=== PATIENT | female | born 1950 | race African-American/Black ===

== ENCOUNTER 2016-12-04 07:54 | Observation (INO) | payer BC, MEDICARE ==
[~2016-12-04] VITALS: Ht 157.5 cm; Wt 111.0 kg
[2016-12-04] VITALS (14 sets, daily range): BP systolic 139–171; BP diastolic 77–97; PULSE 60–85; RESP 15–20; TEMP 96.9–98.7; O2SAT 96–99
[~2016-12-04 07:54] MED LIST: CIPR750T10 PO; LORTA5 PO; METR-1 PO
[2016-12-04] MEDS ORDERED: SODIUM CHLORIDE 0.9% FLUSH 10 ML FLUSH IVF PRN (08:15)
[2016-12-04 08:22] LABS: AUTOMATED NEUTROPHIL # 6.6 TH/MM3 (1.8-7.7); BASOPHIL % 0.5 % (0.0-2.0); EOSINOPHIL # 0.2 TH/MM3 (0-0.4); EOSINOPHIL % 1.9 % (0.0-4.0); HEMATOCRIT 39.7 % (35.0-46.0); LYMPHOCYTE # 2.1 TH/MM3 (1.0-4.8); MEAN CELL VOLUME 90.9 FL (80.0-100.0); MEAN CORPUSCULAR HEMOGLOBIN 30.1 PG (27.0-34.0); MEAN CORPUSCULAR HGB CONC 33.2 % (32.0-36.0); MONO % 7.4 % (0.0-8.0); NEUT % 68.2 % (16.0-70.0); PLATELET COUNT 245 TH/MM3 (150-450); RED BLOOD COUNT 4.36 MIL/MM3 (4.00-5.30); RED CELL DISTRIBUTION WIDTH 12.9 % (11.6-17.2); WHITE BLOOD COUNT 9.6 TH/MM3 (4.0-11.0)
[2016-12-04 08:25] LABS: HEMO FLAGS DIFF FINAL
[2016-12-04 08:30] LABS: CHLORIDE 105 MEQ/L (98-107); POTASSIUM 3.8 MEQ/L (3.5-5.1); SODIUM (NA) 140 MEQ/L (136-145)
--- NOTE | 2016-12-04 08:32 | PD ---
HPI Chief Complaint: Chest Pain Time Seen by Provider: 08:06 Travel History International Travel<30 days: No Contact w/Intl Traveler<30days: No Traveled to known affect area: No History of Present Illness HPI 56-year-old female with history of gastroesophageal reflux, presents to the ER today because she states that she is having substernal chest discomfort that she describes as heaviness starting this morning, feels like she can't take a good deep breath. She does state that she has some right sided headaches but no numbness or weakness or difficulty walking or talking. She denies any coughing, fevers, or any other symptoms. This discomfort is currently rated a 7 out 10. She denies any previous history. However, she did have an evaluation of her heart about 7 years ago and states that they told her was negative. Modifying Factors: None Associated Signs & Symptoms: Chest discomfort Risk Factors: None PFSH Past Medical History Autoimmune Disease: No Anxiety: Yes Depression: No Heart Rhythm Problems: No Cancer: No Cardiac Catheterization: No Cardiovascular Problems: No High Cholesterol: No Chemotherapy: No Chest Pain: No Congestive Heart Failure: No Cerebrovascular Accident: No Diabetes: No Diminished Hearing: No Diverticulitis: Yes Endocrine: No GERD: Yes Genitourinary: No Immune Disorder: No Musculoskeletal: No Neurologic: No Psychiatric: No Reproductive: No Respiratory: No Migraines: No Radiation Therapy: No Seizures: No Sickle Cell Disease: No Thyroid Disease: No ?: Not LMP: EXTRA HAND Menopausal: Yes : 3 Para: 2 : 1 Past Surgical History AICD: Yes Arteriovenous Shunt: No Section: Yes (x1) Coronary Artery Bypass Graft: No Gynecologic Surgery: Yes () Hysterectomy: No Insulin Pump: No Joint Replacement: No Pacemaker: No Other Surgery: Yes Social History Alcohol Use: Yes (occas beer) Tobacco Use: No Substance Use: No (hx of using "pot") Allergies-Medications (Allergen,Severity, Reaction): Coded Allergies: Penicillin (Verified Allergy, Severe, HIVES, 12/04/16) Aspirin (Verified Adverse Reaction, Severe, ABD PAIN, 12/04/16) Reported Meds & Prescriptions Reported Meds & Active Scripts Active No Active Prescriptions or Reported Medications Review of Systems Except as stated in HPI: all other systems reviewed are Neg Physical Exam Narrative GENERAL: Well-developed -[place] elderly female patient currently in mild distress. Awake and oriented 3. Mildly anxious. SKIN: Focused skin assessment warm/dry. HEAD: Atraumatic. Normocephalic. EYES: Pupils equal and round. No scleral icterus. No injection or drainage. ENT: No nasal bleeding or discharge. Mucous membranes pink and moist. EARS: Bilateral pinnae and external canals appear within normal limits. Bilateral tympanic membranes without erythema, dullness or perforation. NECK: Trachea midline. No JVD. CARDIOVASCULAR: Regular rate and rhythm. No murmur appreciated. Pulses are present and equal bilaterally. RESPIRATORY: No accessory muscle use. Clear to auscultation. Breath sounds equal bilaterally. No wheezing, crackles, or rhonchi. GASTROINTESTINAL: Abdomen soft, non-tender, nondistended. Hepatic and splenic margins not palpable. MUSCULOSKELETAL: No obvious deformities. No clubbing. No cyanosis. No edema. EXTREMITIES: No clubbing, cyanosis, or edema. No joint tenderness, effusion, or edema noted. No calf tenderness. Bilateral Homans sign negative. NEUROLOGICAL: Awake and alert. No obvious cranial nerve deficits. Motor grossly within normal limits. Normal speech. PSYCHIATRIC: Appropriate mood and affect; insight and judgment normal. Data Data Last Documented VS Vital Signs Date Time Temp Pulse Resp B/P Pulse Ox O2 Delivery O2 Flow Rate FiO2 12/04/16 09:22 81 15 171/77 98 Room Air 12/04/16 08:13 98.4 Orders Electrocardiogram (12/04/16 08:06) Ckmb (Isoenzyme) Profile (12/04/16 08:06) Complete Blood Count With Diff (12/04/16 08:06) Comprehensive Metabolic Panel (12/04/16 08:06) D-Dimer (12/04/16 08:06) Magnesium (Mg) (12/04/16 08:06) Prothrombin Time / Inr (Pt) (12/04/16 08:06) Act Partial Throm Time (Ptt) (12/04/16 08:06) Troponin I (12/04/16 08:06) Lipase (12/04/16 08:06) Chest, Single Ap (12/04/16 08:06) Ecg Monitoring (12/04/16 08:06) Bilateral Bp Monitoring (12/04/16 08:06) Iv Access Insert/Monitor (12/04/16 08:06) Oximetry (12/04/16 08:06) Oxygen Administration (12/04/16 08:06) Sodium Chloride 0.9% Flush (Ns Flush) (12/04/16 08:15) Labs Laboratory Tests Test 12/04/16 08:10 White Blood Count 9.6 TH/MM3 Red Blood Count 4.36 MIL/MM3 Hemoglobin 13.1 GM/DL Hematocrit 39.7 % Mean Corpuscular Volume 90.9 FL Mean Corpuscular Hemoglobin 30.1 PG Mean Corpuscular Hemoglobin 33.2 % Concent Red Cell Distribution Width 12.9 % Platelet Count 245 TH/MM3 Mean Platelet Volume 8.6 FL Neutrophils (%) (Auto) 68.2 % Lymphocytes (%) (Auto) 22.0 % Monocytes (%) (Auto) 7.4 % Eosinophils (%) (Auto) 1.9 % Basophils (%) (Auto) 0.5 % Neutrophils # (Auto) 6.6 TH/MM3 Lymphocytes # (Auto) 2.1 TH/MM3 Monocytes # (Auto) 0.7 TH/MM3 Eosinophils # (Auto) 0.2 TH/MM3 Basophils # (Auto) 0.0 TH/MM3 CBC Comment DIFF FINAL Differential Comment Prothrombin Time 10.5 SEC Prothromb Time International 1.0 RATIO Ratio Activated Partial 29.2 SEC Thromboplast Time D-Dimer Quantitative (PE/DVT) 0.23 MG/L FEU Sodium Level 140 MEQ/L Potassium Level 3.8 MEQ/L Chloride Level 105 MEQ/L Carbon Dioxide Level 27.6 MEQ/L Anion Gap 7 MEQ/L Blood Urea Nitrogen 14 MG/DL Creatinine 0.82 MG/DL Estimat Glomerular Filtration 85 ML/MIN Rate Random Glucose 122 MG/DL Calcium Level 9.0 MG/DL Magnesium Level 1.9 MG/DL Total Bilirubin 0.4 MG/DL Aspartate Amino Transf 13 U/L (AST/SGOT) Alanine Aminotransferase 22 U/L (ALT/SGPT) Alkaline Phosphatase 89 U/L Total Creatine Kinase 94 U/L Troponin I LESS THAN 0.02 NG/ML Total Protein 7.9 GM/DL Albumin 3.3 GM/DL Lipase 78 U/L MDM Medical Decision Making Medical Screen Exam Complete: Yes Emergency Medical Condition: Yes Medical Record Reviewed: Yes Interpretation(s) EKG shows NSR, no ST elevation or depression, and no arrhythmias. No significant T-wave inversions. Laboratory Tests Test 12/04/16 08:10 Estimat Glomerular Filtration 85 ML/MIN (>89) Rate Random Glucose 122 MG/DL (74-106) Aspartate Amino Transf 13 U/L (15-37) (AST/SGOT) Troponin I LESS THAN 0.02 NG/ML (0.02-0.05) Albumin 3.3 GM/DL (3.4-5.0) Differential Diagnosis Chest painsACS versus anxiety attack versus pneumonia versus other acute pulmonary processes Narrative Course EKG, lab work, chest x-ray did not show any signs of acute processes. She will need further provocative the testing and I have offered to admit her to chest pain center for further evaluation. At this point, she states that she would prefer to follow-up as an outpatient when she gets her insurance card. I have talked her about the fact that her blood pressures were somewhat elevated. This is just a single blood pressure reading, patient should also follow-up with primary care physician regarding further evaluation of blood pressures. Return for any worsening in symptoms or if she changes her mind about getting evaluated. The plan and the risks were discussed with the patient and she states understanding. Diagnosis Primary Impression: Chest pain Additional Impression: High blood pressure Scripts No Active Prescriptions or Reported Meds Disposition: 01 DISCHARGE HOME Condition: Stable Annette Schmidt MD Dec 04, 2016 08:32
[2016-12-04 08:34] LABS: ANION GAP 7 MEQ/L (5-15); BICARBONATE 27.6 MEQ/L (21.0-32.0); BLOOD UREA NITROGEN 14 MG/DL (7-18); MAGNESIUM 1.9 MG/DL (1.5-2.5)
[2016-12-04 08:37] LABS: ALT (GPT) 22 U/L (10-53); AST (GOT) 13 U/L (15-37); GLOMERULAR FILTRATION RATE 85 ML/MIN (>89)
[2016-12-04 08:38] LABS: TOTAL BILIRUBIN ADULT 0.4 MG/DL (0.2-1.0)
[2016-12-04 08:39] LABS: ALKALINE PHOSPHATASE 89 U/L (45-117)
[2016-12-04 08:40] LABS: APTT (PATIENT) 29.2 SEC (24.3-30.1); PROTHROMBIN TIME - PATIENT 10.5 SEC (9.8-11.6)
[2016-12-04 08:44] LABS: CREATINE KINASE 94 U/L (26-192)
--- NOTE | 2016-12-04 09:26 | RADHPO ---
EXAM DATE/TIME: 12/04/2016 08:15 [facility] COMPARISON: CHEST SINGLE AP, March 13, 2013, 13:36. INDICATIONS : Chest pain this a.m. MEDICAL HISTORY : None. SURGICAL HISTORY : None. ENCOUNTER: Initial ACUITY: 1 day PAIN SCORE: 8/10 LOCATION: Bilateral chest FINDINGS: The lungs are underaerated but clear. Heart and pulmonary vascularity are normal. Portion of bony s keleton visualized is unremarkable. CONCLUSION: Underaerated. Otherwise, negative. Sher Alarcon MD FACR on December 04, 2016 at 9:16 Board Certified Radiologist. This report was verified electronically.
[2016-12-04] MEDS ORDERED: MORPHINE SULFATE 4 MG/ML INJ IV PRN (10:30)
[2016-12-04] MEDS ORDERED: NITROGLYCERIN 0.4 MG SL 25 TABS/BTL SL PRN (10:30)
[2016-12-04] MEDS ORDERED: ONDANSETRON HCL 4 MG/2 ML VIAL IV PRN (10:30)
[2016-12-04] MEDS ORDERED: SODIUM CHLORIDE 0.9% FLUSH 10 ML FLUSH IV FLUSH PRN (10:30)
[2016-12-04] MEDS ORDERED: ACETAMINOPHEN 500 MG CPLT PO PRN (10:30)
--- NOTE | 2016-12-04 10:44 | HHI.HP ---
[facility] Primary [facility] Physician No Primary Care Physician Admission Diagnosis chest pain Diagnoses: (1) Chest pain Diagnosis: Principal (2) Elevated blood pressure reading Diagnosis: Principal Chief Complaint: Chest discomfort Travel History International Travel<30 Days: No Contact w/Intl Traveler <30 Da: No Traveled to Known Affected Are: No History of Present Illness Written by Ceferino Clark, acting as scribe for Dr. Wolff on 12/04/16 at 10: 32. 66-year-old female with gastroesophageal reflux who presented to the emergency department because of chest discomfort. Patient states that approximately 5:30 this morning and she started developing severe left-sided chest pain along the left sternal border. She states that the pain is associated with pleuritic pain , difficulty in taking a deep breath. She denied any nausea, vomiting, diaphoresis, lightheadedness, dizziness. Patient indicates that the pain was initially 9/10 on a pain scale and after being in the emergency department is now down to 5/10 on a pain scale. Patient indicates that she is in normal state of health until last evening she went out at approximately 2 AM to do online gambling and she came home approximately 5 AM and she ate herself a peanut butter sandwich. She laid down to go to sleep and she woke up at 5:30 with the discomfort. The discomfort did not go away so she came to the emergency department for evaluation. Patient was evaluated in emergency department recommended observation in the chest pain center. Patient has had previous chest pain Center admission in 2013 in which she was ruled out for acute coronary event at that time. She had a nuclear stress test done then also which was negative. Review of Systems Constitutional: DENIES: Diaphoretic episodes, Fatigue, Fever, Weight gain, Weight loss, Chills, Dizziness, Change in appetite, Night Sweats Eyes: DENIES: Blurred vision, Diplopia, Eye inflammation, Eye pain, Vision loss , Double Vision Ears, nose, mouth, throat: DENIES: Hearing loss, Nasal discharge, Throat pain, Ear Pain, Running Nose, Sinus Pain, Odynophagia Respiratory: COMPLAINS OF: Shortness of breath, DENIES: Apneas, Cough, Snoring , Wheezing, Hemoptysis, Sputum production Cardiovascular: COMPLAINS OF: Chest pain, DENIES: Palpitations, Syncope, Dyspnea on Exertion, Lower Extremity Edema, Orthopnea Gastrointestinal: DENIES: Abdominal pain, Black stools, Bloody stools, Constipation, Diarrhea, Nausea, Vomiting, Difficulty Swallowing, Anorexia Neurologic: COMPLAINS OF: Headache, DENIES: Abnormal gait, Localized weakness , Paresthesias, Seizures, Speech Problems, Tremor, Poor Balance Past Family Social History Past Medical History Gastroesophageal reflux History diverticulitis Past Surgical History Reported Medications Reported Meds & Active Scripts Active No Active Prescriptions or Reported Medications Allergies: Coded Allergies: Penicillin (Verified Allergy, Severe, HIVES, 12/04/16) Aspirin (Verified Adverse Reaction, Severe, ABD PAIN, 12/04/16) Family History Reviewed is significant for brother and daughter with diabetes. There is no indication of any heart disease, cancer, seizures, stroke Social History Patient denies any tobacco, alcohol or illicit drugs Physical Exam Vital Signs Vital Signs Date Time Temp Pulse Resp B/P Pulse Ox O2 Delivery O2 Flow Rate FiO2 12/04/16 09:22 81 15 171/77 98 Room Air 12/04/16 08:19 153/92 149/85 12/04/16 08:19 98 12/04/16 08:19 98 Room Air 12/04/16 08:19 85 98 Room Air 12/04/16 08:13 98.4 85 17 153/92 98 Physical Exam GENERAL: Well-developed, well-nourished, in no acute distress. alert and orientated HEENT: Head is normocephalic without any lesions or masses noted. Facial features are symmetric. Eyes: Pupils equal round reactive to light. Extraocular muscles are intact. Conjunctivae were clear. Oropharyngeal: Pharynx without any erythema edema. Tongue is midline without deviation. Buccal mucosa is moist without any masses or lesions NECK: Supple without any masses. Trachea midline no deviation. No JVD, no bruits are appreciated CARDIAC: Regular rhythm, regular rate. S1/S2 are heard. No murmurs gallops or rubs. Reproducible point tenderness noted left sternal border in the third fourth intercostal space LUNGS: Clear to auscultation bilaterally. No wheeze, rhonchi or rales. No use of accessory muscles on inspiration or expiration. ABDOMEN: Soft, nontender. Nondistended. Bowel sounds heard in all 4 quadrants. No organomegaly or masses. Negative rebound, negative guarding EXTREMITIES: No edema, pulses are equal bilaterally. No cyanosis or clubbing NEUROLOGY: Mood and affect appear appropriate. Cranial nerves II through XII grossly intact. Muscle strength 5/5 in upper and lower extremities bilaterally. Deep tendon reflexes are 2+ in upper and lower extremities bilaterally. Laboratory Laboratory Tests Test 12/04/16 08:10 White Blood Count 9.6 Red Blood Count 4.36 Hemoglobin 13.1 Hematocrit 39.7 Mean Corpuscular Volume 90.9 Mean Corpuscular Hemoglobin 30.1 Mean Corpuscular Hemoglobin 33.2 Concent Red Cell Distribution Width 12.9 Platelet Count 245 Mean Platelet Volume 8.6 Neutrophils (%) (Auto) 68.2 Lymphocytes (%) (Auto) 22.0 Monocytes (%) (Auto) 7.4 Eosinophils (%) (Auto) 1.9 Basophils (%) (Auto) 0.5 Neutrophils # (Auto) 6.6 Lymphocytes # (Auto) 2.1 Monocytes # (Auto) 0.7 Eosinophils # (Auto) 0.2 Basophils # (Auto) 0.0 CBC Comment DIFF FINAL Differential Comment Prothrombin Time 10.5 Prothromb Time International 1.0 Ratio Activated Partial 29.2 Thromboplast Time D-Dimer Quantitative (PE/DVT) 0.23 Sodium Level 140 Potassium Level 3.8 Chloride Level 105 Carbon Dioxide Level 27.6 Anion Gap 7 Blood Urea Nitrogen 14 Creatinine 0.82 Estimat Glomerular Filtration 85 Rate Random Glucose 122 Calcium Level 9.0 Magnesium Level 1.9 Total Bilirubin 0.4 Aspartate Amino Transf 13 (AST/SGOT) Alanine Aminotransferase 22 (ALT/SGPT) Alkaline Phosphatase 89 Total Creatine Kinase 94 Troponin I LESS THAN 0.02 Total Protein 7.9 Albumin 3.3 Lipase 78 Result Diagram: 12/04/16 0810 12/04/16 0810 Assessment and Plan Assessment and Plan //Chest pain, atypical -Patient with risk factor only to indicate age -Ruled out acute coronary syndrome with serial cardiac enzymes and serial EKGs -Nuclear stress test showed small stress-induced ischemia in the lateral wall -Start aspirin 325 mg daily -Continue pain control with [place]/morphine -Contacted cardiology, notify them of the abnormal stress test. They indicated that they will be by and see the patient and make further recommendations -Start Coreg 3.125 mg twice daily -Start Lipitor 10 mg daily -Start heparin IV protocol -Unable to use nitroglycerin at this time due to bradycardia -Obtain lipid panel //Elevated blood pressure, could be secondary to lack of sleep, stress -Patient does not have history of hypertension -Patient will be started on Coreg -Clonidine as needed //DVT prevention -Sequential compression devices This note was transcribed by scribe [Ceferino Clark]. I, Dr. Hasmukh Wolff personally performed the history, physical exam, and medical decision making; and confirmed the accuracy of the information in the transcribed note. Authenticated by Dr. Hasmukh Wolff on 12/06/16 at 00:10. Problem Qualifiers (1) Chest pain: Ceferino Clark Dec 04, 2016 10:44 Hasmukh Wolff MD Dec 06, 2016 00:10 Ceferino Clark Dec 04, 2016 10:44
[2016-12-04] MEDS ORDERED: cloNIDine HCL 0.1 MG TAB PO PRN (10:45)
[2016-12-04 11:57] LABS: CREATINE KINASE 83 U/L (26-192)
[2016-12-04] MEDS ORDERED: REGADENOSON INJ 0.4 MG/5 ML SYR IV ONE (12:42)
--- NOTE | 2016-12-04 12:59 | EKG ---
Date Performed: 12/04/2016 Time Performed: 07:58:34 PTAGE: 66 years EKG: Sinus rhythm . rSr'(V1) - probable normal variant Normal ECG PREVIOUS TRACING : 03/13/2013 17.55 DOCTOR: Anastacio Robins Interpretating Date/Time 12/04/2016 12:57:41
--- NOTE | 2016-12-04 13:53 | RADHPO ---
EXAM DATE/TIME: 12/04/2016 12:39 [facility] COMPARISON: MYOCARDIAL PERF TREADMILL SPECT, GATED W/EF, March 14, 2013, 9:28. INDICATIONS : Left sided chest pain. Angina. DOSE: 35 mCi Tc99m Myoview at stress. 11 mCi Tc99m Myoview at rest. 0.4 mg Lexiscan STRESS SYMPTOMS: Throat pressure and headache. EJECTION FRACTION: > 70% MEDICAL HISTORY : Hypertension. SURGICAL HISTORY : section. Internal defibrillator. ENCOUNTER: Initial ACUITY: 1 day PAIN SCALE: 9/10 LOCATION: Left chest TECHNIQUE: The patient underwent pharmacologic stress with infusion of prescribed dose. Continuous ECG tracing was monitored during stress. Gated SPECT imaging was performed after stress and conventional SPECT i maging was performed at rest. The examination was performed on a SPECT/CT scanner, both attenuation and non-corrected datasets were reviewed. FINDINGS: DISTRIBUTION: The maximum perfused segment at stress is in the anterior wall. PERFUSION STUDY: Small focus of mild reversible perfusion deficit seen of the lateral wall. GATED STUDY: There is intact wall motion and thickening without hypokinetic or dyskinetic segments. CONCLUSION: Small focus of mild stress-induced ischemia of the lateral wall. RISK CATEGORY: Intermediate Avi Altamirano MD on December 04, 2016 at 13:49 Board Certified Radiologist. This report was verified electronically.
--- NOTE | 2016-12-04 14:26 | TR ---
Date Performed: 12/04/2016 Time Performed: 13:04:56 DOCTOR: Anastacio Robins DRUG LIST: CLINICAL HISTORY: CHEST PAIN REASON FOR TEST: REASON FOR ENDING: OBSERVATION: CONCLUSION: Lexiscan stress test was performed under standard four minute protocol. Radionuclide was injected one minute prior to ending the test. The patient was asymptomatic, systolic blood press ure became slightly elevated. No electrocardiographic abnormalities were present to suggest ischemia. Recovery was quick and uneventful, systolic blood pressure returned to normal. Nuclear imaging and i nterpretation are pending. COMMENTS:
[2016-12-04] MEDS ORDERED: ATORVASTATIN 10 MG TAB PO SCH (14:45)
[2016-12-04] MEDS ORDERED: CARVEDILOL 3.125 MG TAB PO SCH (14:45)
[2016-12-04] MEDS ORDERED: HEPARIN SODIUM - IV 10,000 UNITS/10 ML VIAL IV ONE (15:15)
[2016-12-04 15:53] LABS: CREATINE KINASE 90 U/L (26-192)
[2016-12-04] MEDS ORDERED: ASPIRIN EC 325 MG TABEC PO SCH (16:00)
[2016-12-04] MEDS: ACETAMINOPHEN/HYDROcodone 325 MG/7.5 MG TAB PO PRN ×2 (16:32→21:42)
[2016-12-04] MEDS: HEPARIN-D5W INJ 250 ML IV SCH (17:06)
[2016-12-04] MEDS: NITROGLYCERIN 2% OINT 1 GM PACKET TOPICAL SCH (17:56)
--- NOTE | 2016-12-04 19:42 | MB ---
cc: TAMRA HENRIQUEZ PEDRO GOLDSMITH, ALAN S. MD DATE OF CONSULTATION 12/04/16 The patient is a pleasant 66-year-old woman I am seeing for unstable angina. I have reviewed hospital records and spoken to the patient. The patient has had rare atypical chest discomfort in the past. SPECT nuclear done in 2012 was normal. The patient had been up most of the night at an [employer] place. She came home approximately 5-5:30. She had a peanut butter and jelly sandwich. At about 6:30, she developed a severe substernal tightness. There was no radiation or associated symptoms, but maybe she was a little short of breath with this. It was not pleuritic or positional. It went away in about 20 minutes but came back a little bit later lasting for another 20-30 minutes. She is pain free now. She has no other cardiopulmonary symptoms or history. She denies hypertension, diabetes or hyperlipidemia. PAST MEDICAL HISTORY 1. Diverticulitis 2. Esophageal reflux 3. Caesarean section ALLERGIES PENICILLIN - RESULTS IN HIVES HIGH DOSE ASPIRIN - RESULTS IN STOMACH DISTRESS SOCIAL HISTORY She is and does not smoke and rarely drinks. FAMILY HISTORY Unremarkable for premature coronary disease. MEDICATIONS She is not on any medication before coming in. Her LDL in the past in 2008 was 133. REVIEW OF SYSTEMS Remarkable for her gaining weight and having occasional joint discomfort. She has been active and has gone back to the gym recently. PHYSICAL EXAMINATION GENERAL: She is morbidly overweight but resting comfortably. VITAL SIGNS: Afebrile. Vital signs stable, although she has been mildly hypertensive. HEENT: There are no xanthelasma and oral pharyngeal mucosa normal. CHEST: There are no obvious chest deformities. Chest is clear. JVD normal. CARDIAC: S1-S2 no murmurs or gallops. ABDOMEN: Benign. EXTREMITIES: No cyanosis, clubbing or edema. PULSES: Carotids without bruits. Radials 1+. Femorals deep 1+ without bruits. Pedals 1+. She is not ambulated. CARDIOLOGY STUDIES EKG showed sinus rhythm with RSR prime in V1 and is otherwise probably normal. LABORATORY DATA Troponins are negative. Potassium 4.2, creatinine 0.54, PT/PTT and D-dimer normal. She is being started on heparin. CBC normal. ASSESSMENT 1. Chest discomfort - the patient had an abnormal SPECT nuclear which showed preserved ventricular function but with mild stress-induced ischemia at the lateral wall. This is new compared to prior one, although she has put on weight. 2. Obesity 3. Hypertension 4. Hyperlipidemia. RECOMMENDATIONS 1. Continue heparin. 2. Statins and beta blockers and nitrates. 3. Catheterization with possible intervention. The risks/benefits/alternatives were explained and informed consent obtained. I will consult my partner, Dr. Mcdowell, for this. 4. Low cholesterol/salt diet with weight loss. 5. Transfer to CICU at the [facility]. All questions were answered. MD COLT Garrido/ /5:00 PM /7:30 PM
[2016-12-04] MEDS: CARVEDILOL 6.25 MG TAB PO SCH (21:00)
[2016-12-04] MEDS ORDERED: HEPARIN SODIUM - IV 10,000 UNITS/10 ML VIAL IV PRN ×2 (21:15)
[2016-12-04] MEDS: SODIUM CHLORIDE 0.9% FLUSH 10 ML FLUSH IV FLUSH SCH (21:46)
[2016-12-04 23:18] LABS: APTT (PATIENT) 47.8 SEC (24.3-30.1)
[2016-12-05] VITALS (27 sets, daily range): BP systolic 81–153; BP diastolic 46–80; PULSE 57–114; RESP 18–20; TEMP 98–98.9; O2SAT 97–99
[2016-12-05 05:46] LABS: HDL CHOLESTEROL 58.3 MG/DL (40.0-60.0)
[2016-12-05] MEDS: NITROGLYCERIN 2% OINT 1 GM PACKET TOPICAL SCH ×4 (06:00→17:43)
[2016-12-05 06:25] LABS: APTT (PATIENT) 46.4 SEC (24.3-30.1)
[2016-12-05] MEDS: SODIUM CHLORIDE 0.9% FLUSH 10 ML FLUSH IV FLUSH SCH ×2 (09:00→20:19)
--- NOTE | 2016-12-05 09:34 | PD.CARD.PN ---
Subjective Subjective Remarks The patient denies chest pain, shortness of breath, palpitations, GI symptoms or bleeding. Telemetry reveals sinus rhythm. Objective Medications Reviewed Vital Signs / I&O Vital Signs Date Time Temp Pulse Resp B/P Pulse Ox O2 Delivery O2 Flow Rate FiO2 12/05/16 07:30 98.4 72 20 153/80 99 12/05/16 06:00 58 12/05/16 05:00 57 12/05/16 04:30 98.0 58 20 125/73 98 12/05/16 04:00 60 12/05/16 03:00 62 12/05/16 02:00 62 12/05/16 01:00 60 12/05/16 00:00 66 12/05/16 00:00 98.4 58 18 110/60 97 81/46 12/04/16 23:00 62 12/04/16 22:00 60 12/04/16 21:00 68 12/04/16 20:40 68 12/04/16 20:00 98.3 68 20 160/86 98 12/04/16 18:11 72 12/04/16 17:32 20 12/04/16 16:48 98.7 75 18 163/97 99 12/04/16 13:44 20 12/04/16 12:18 96.9 67 15 149/84 99 12/04/16 11:36 96 21 12/04/16 11:00 82 12/04/16 10:15 68 15 139/84 98 I/O 12/04/16 12/04/16 12/04/16 12/05/16 12/05/16 12/05/16 07:00 15:00 23:00 07:00 15:00 23:00 Intake Total 600 ml 240 ml Balance 600 ml 240 ml Intake Oral 600 ml 240 ml # Voids 4 2 Physical Exam GENERAL: Overweight , well-nourished, well-developed patient in no apparent distress. SKIN: Warm and dry. NECK: JVD normal - less than or equal to 5 cm H20. CARDIOVASCULAR: Regular rate and rhythm without murmurs, gallops, or rubs. RESPIRATORY: Normal breath sounds - equal bilaterally. No accessory muscle use. No wheezes, rales or rubs. PERIPHERY: No cyanosis, or edema. Laboratory Laboratory Tests Test 12/04/16 12/04/16 12/04/16/11/17 10:50 14:57 22:45 05:05 Total Creatine Kinase 83 U/L 90 U/L Troponin I LESS THAN 0.02 LESS THAN 0.02 NG/ML NG/ML Activated Partial 47.8 SEC 46.4 SEC Thromboplast Time Triglycerides Level 98 MG/DL Cholesterol Level 195 MG/DL LDL Cholesterol 117 MG/DL HDL Cholesterol 58.3 MG/DL Cholesterol/HDL Ratio 3.34 RATIO Imaging Last 48 hours Impressions Chest X-Ray 12/04/16 0806 Signed Impressions: Service Date/Time: Sunday, December 04, 2016 08:15 - CONCLUSION: Underaerated. Otherwise, negative. Sher Alarcon MD FACR Myocardial Perfusion Scan Nuc Med 12/04/16 0000 Signed Impressions: Service Date/Time: Sunday, December 04, 2016 12:39 - CONCLUSION: Small focus of mild stress-induced ischemia of the lateral wall. RISK CATEGORY: Intermediate Avi Altamirano MD Assessment and Plan Assessment and Plan Problems: Unstable angina with mildly abnormal SPECT nuclear. Hypertension Hyperlipidemia Obesity Recommendations: Catheterization with possible intervention with Dr. Mcdowell tomorrow. Low-cholesterol/salt diet with weight loss. Continue aspirin, statins, beta blockers and nitrates along with heparin drip. The patient has been advised she clearly needs to establish and follow with a primary care provider. I will sign off and leave further management to Dr. Mcdowell from a cardiac standpoint. Eduardo Boyce MD Dec 05, 2016 09:34
[2016-12-05] MEDS: CARVEDILOL 6.25 MG TAB PO SCH ×2 (10:13→20:25)
[2016-12-05] MEDS: ASPIRIN EC 81 MG TABEC PO SCH (10:14)
[2016-12-05] MEDS: ATORVASTATIN 40 MG TAB PO SCH (10:15)
--- NOTE | 2016-12-05 12:16 | EKG ---
Date Performed: 12/04/2016 Time Performed: 10:53:02 PTAGE: 66 years EKG: Sinus bradycardia. rSr'(V1) - probable normal variant Borderline ECG PREVIOUS TRACING : 12/04/2016 07.58 DOCTOR: Anastacio Robins Interpretating Date/Time 12/05/2016 12:16:30
--- NOTE | 2016-12-05 12:19 | EKG ---
Date Performed: 12/04/2016 Time Performed: 15:01:24 PTAGE: 66 years EKG: Sinus rhythm . rSr'(V1) - probable normal variant Normal ECG PREVIOUS TRACING : 12/04/2016 10.53 DOCTOR: Anastacio Robins Interpretating Date/Time 12/05/2016 12:17:14
--- NOTE | 2016-12-05 13:35 | HHI.PR ---
Subjective Remarks Follow-up unstable angina 12/05/16-patient seen and examined, currently denies any chest pain or shortness of breath. Case discussed with cardiology, Dr. Boyce. Admits of noncompliance with medical care Objective Vitals Vital Signs Date Time Temp Pulse Resp B/P Pulse Ox O2 Delivery O2 Flow Rate FiO2 12/05/16 12:04 98.8 80 20 111/66 99 12/05/16 08:00 98.4 72 20 153/80 99 12/05/16 07:30 98.4 72 20 153/80 99 12/05/16 06:00 58 12/05/16 05:00 57 12/05/16 04:30 98.0 58 20 125/73 98 12/05/16 04:00 60 12/05/16 03:00 62 12/05/16 02:00 62 12/05/16 01:00 60 12/05/16 00:00 66 12/05/16 00:00 98.4 58 18 110/60 97 81/46 12/04/16 23:00 62 12/04/16 22:00 60 12/04/16 21:00 68 12/04/16 20:40 68 12/04/16 20:00 98.3 68 20 160/86 98 12/04/16 18:11 72 12/04/16 17:32 20 12/04/16 16:48 98.7 75 18 163/97 99 12/04/16 13:44 20 I/O 12/04/16 12/04/16 12/04/16 12/05/16 12/05/16 12/05/16 07:00 15:00 23:00 07:00 15:00 23:00 Intake Total 600 ml 240 ml Balance 600 ml 240 ml Intake Oral 600 ml 240 ml # Voids 4 2 Result Diagram: 12/04/16 0810 12/04/16 0810 Imaging Last Impressions Chest X-Ray 12/04/16 0806 Signed Impressions: Service Date/Time: Sunday, December 04, 2016 08:15 - CONCLUSION: Underaerated. Otherwise, negative. Sher Alarcon MD FACR Myocardial Perfusion Scan Nuc Med 12/04/16 0000 Signed Impressions: Service Date/Time: Sunday, December 04, 2016 12:39 - CONCLUSION: Small focus of mild stress-induced ischemia of the lateral wall. RISK CATEGORY: Intermediate Avi Altamirano MD Objective Remarks GENERAL: NAD SKIN: Warm and dry. HEAD: Normocephalic. EYES: No scleral icterus. No injection or drainage. NECK: Supple, trachea midline. No JVD or lymphadenopathy. CARDIOVASCULAR: Regular rate and rhythm without murmurs, gallops, or rubs. RESPIRATORY: Breath sounds equal bilaterally. No accessory muscle use. GASTROINTESTINAL: Abdomen soft, non-tender, nondistended. MUSCULOSKELETAL: No cyanosis, or edema. BACK: Nontender without obvious deformity. No CVA tenderness. A/P Problem List: (1) Unstable angina ICD Code: I20.0 Status: Acute (2) Chest pain ICD Code: R07.9 Status: Acute (3) Elevated blood pressure reading ICD Code: R03.0 Status: Acute (4) Benign hypertension ICD Code: I10 Status: Acute (5) Hyperlipidemia ICD Code: E78.5 Status: Acute (6) IFG (impaired fasting glucose) ICD Code: R73.01 Status: Acute Assessment and Plan 66-year-old female with Unstable angina Mildly abnormal SPECT for which legal billing specialist has been consulted pending left heart catheterization 12/06/16 Continue with heparin drip, beta sophie, Lipitor, aspirin, nitroglycerin paste, morphine when necessary. 2-D echo pending Hypertension Normotensive on Coreg Hyperlipidemia LDL of 117 Continue with Lipitor Impaired fasting glucose No known history of diabetes type 2, check hemoglobin A1c and treat accordingly DVT prophylaxis: Heparin Problem Qualifiers (1) Chest pain: Joe Yeh MD Dec 05, 2016 13:35
[2016-12-05] MEDS: HEPARIN-D5W INJ 250 ML IV SCH (16:31)
[2016-12-05] MEDS ORDERED: IOHEXOL 350 MG/ML 50 ML BTL (for Cath Lab) OTHER ONE (17:40)
[2016-12-05] MEDS ORDERED: HEPARIN-NS/PF INJ 500 ML ONE (17:50)
[2016-12-05] MEDS ORDERED: NITROGLYCERIN INJ 5 ML ONE (17:51)
[2016-12-05] MEDS ORDERED: MIDAZOLAM HCL 2 MG/2 ML VIAL ONE (17:51)
[2016-12-05] MEDS ORDERED: HEPARIN SODIUM - IV 10,000 UNITS/10 ML VIAL ONE (17:51)
[2016-12-05] MEDS ORDERED: VERAPAMIL HCL 5 MG/2 ML VIAL ONE (17:51)
--- NOTE | 2016-12-05 18:12 | MB ---
cc: DARNELL PATRICK DATE OF CONSULTATION 12/05/2016 Interventional cardiology consult. DATE OF 1950 REASON FOR CONSULTATION Chest pain, positive stress test. HISTORY OF PRESENT ILLNESS 66-year-old female with cardiac risk factors that include obesity, hypertension , hyperlipidemia and age that presented to the emergency department with severe substernal chest tightness with no radiation or associated symptoms. She subsequently went to the [facility] where she was admitted. She ruled out by cardiac markers and underwent a myocardial perfusion study that showed preserved LV systolic function with mild stress- induced ischemia of the lateral wall. Thus she was transferred to [facility] and she was consulted to interventional cardiology for LHC +/- PCI. REVIEW OF SYSTEMS Negative except for what is mentioned in HPI. PAST MEDICAL HISTORY 1. Diverticulitis. 2. Gastroesophageal reflux disease. 3. section. 4. Obesity. 5. Hypertension. 6. Hyperlipidemia. ALLERGIES PENICILLIN. SOCIAL HISTORY No smoking, no alcohol use or no illicit drug use. FAMILY HISTORY Noncontributory. MEDICATIONS Home medications, none. PHYSICAL EXAMINATION VITAL SIGNS: Temperature 98, pulse 65, respiratory rate 20, blood pressure 111/ 65. O2 sat 99% room air. GENERAL: She is awake, alert, oriented x3 in no acute distress. NECK: No JVD, no carotid bruits. HEART: Regular rate and rhythm. LUNGS: Clear to auscultation bilaterally. ABDOMEN: Obese. Positive bowel sounds, soft, nontender, nondistended. EXTREMITIES: No edema. No cyanosis. Pulses throughout. LABORATORY DATA CBC, hemoglobin 13, hematocrit 39, platelet count 245. INR 1.0. Chemistries, sodium 140, potassium 3.8, BUN 14, creatinine 0.82. Troponin less than 0.02 x3. Triglycerides 98, cholesterol 195, LDL 117. HDL 58. IMAGING Chest x-ray no acute cardiopulmonary process. Myocardial perfusion study shows small focus of mild stress induced ischemia in the lateral wall. Risk intermediate. EKG normal sinus rhythm with nonspecific ST changes and T-wave inversions in lead III and V1. ASSESSMENT/PLAN 66-year-old female with above history and findings presented with angina and a positive stress test. She remains afebrile and hemodynamically stable. She is currently chest pain free and tolerating medications. At this point given her results of the stress test, I think it would reasonable to take her to the cardiac catheterization lab to assess coronary anatomy. Risks and benefits of left heart cath / PCI including but not limited to bleeding, infection, acute kidney injury, neurovascular trauma, emergent bypass surgery, stroke and have been explained to the patient. The patient understands the risks and she is willing to proceed. RECOMMENDATIONS: 1. Keep n.p.o. for left heart cath today 2. Right radial access 6Fr Sheath, JR 4 and JL4 2. Continue aggressive medical management for coronary artery disease including aspirin, statins, beta blockers, BRIDGER inhibitors and heparin drip. Thank you for the opportunity to take part in the care of this patient. Further management to be determined. MD MELBA Cervantes/KK /3:19 PM /5:53 PM HUSAM
--- NOTE | 2016-12-05 18:17 | CATHPROC ---
[employer] HIS Report Study Information Study Number Admission Scheduled Start Study Start [id number] Dec 04 2016 9:51AM 12/05/2016 Dec 05 2016 5:33PM [place] Service Cardiac Catheterization Admit Source Facility Department Other [facility] - Nursing Program Coordinator Physician and Clinical Staff Initial MD Rodriguez, Kieran Television Cable Installer Albert Poole,THIERRY Recorder Thanh Strickland,RT(R) Scrub Thomas Cruz RCIS(BS) Procedures Performed Procedure Location (Site) Vessel Name Coronary Angiograms LCA Left Coronary Coronary Angiograms RCA Right Coronary LV Gram-hand inj. LV LV Ventricle Equipment Time Cardiology Nurse Practitioner Description Size Mfg Part Number Used/Scraped TRANSDUCER, TRUWAVE [id number] 17:37 BOYER RODRIGUEZ * Used W/STOCKCOCK *[id number] *[id number] *[id number] 17:37 AddFleet PACK, CCL CUSTOM * Used *[id number] 17:37 [employer]Fleet SUPPORT, ARTERIAL ADULT 11023 Used BAND, RADIAL COMPRESSION TR [id number] 18:07 D-ÉG Thermoset MEDICAL 29CM Used LARGE 29 *[id number] 17:37 Precision Biopsy WIRE, 3MMJ .035 180CM 180CM Used *[id number] 17:37 NAMIC MANIFOLD, 4 PORT * Used *[id number] 17:37 NYCOMED OMNIPAQUE, 350 MG, 150ML 150ML [id number] Used [id number] 17:37 DINH MEDICAL BLANKET,WARM AIR CCL * Used *[id number] SHEATH, FR6 TRANSRADIAL 17:37 [place] MEDICAL FR 6 [id number] Used SLENDER 10CM History: Allergies Allergy Reaction Aspirin ABD PAIN Penicillin HIVES History: Risk Factors Family History of Hypertension Dyslipidemia Previous DE Previous Heart Failure Premature CAD No No No No No Prior Valve Prior PCI Prior CABG Surgery No No No Cerebrovascular Peripheral Artery Chronic Lung On Dialysis Diabetes Disease Disease Disease No No No No No History: Stress Tests Stress or Imaging Studies Performed Yes Standard Exercise Stress Test No Stress Echo No Stress Test SPECT Stress Test SPECT Result Stress Test SPECT Ischemia Risk/Extent Yes Positive Intermediate Stress Test CMR No Cardiac CTA Coronary Calcium Score No No History: Other Current Smoker No Labs Hgb (g/dl) Hct (%) WBC (l/cumm) Platelets (thousands) 12.00-18.00 37.00-55.00 4.80-10.80 140.00-450.00 13.1 39.7 9.6 245 Glucose (mg/dl) BUN (mg/dl) Creatinine (mg/dl) BUN:Creatinine (1:x) 60.00-110.00 8.00-20.00 0.10-9.00 10.00-20.00 122 14 0.8 17.5 Na (meq/l) K (meq/l) 138.00-146.00 3.80-5.10 140 3.8 INR (PTT:PT) 0.50-2.00 1 Troponin I (ng/ml) CPK-MB (ng/ML) 0.40-2.30 0.00-7.00 0.02 Not Drawn Medication Medication Total Dose (Bolus/Oral) Medication Total Dosage/Unit 1% XYLOCAINE 5 mL FENTANYL 50 mcg RADIAL COCKTAIL 5 mL (Bolus) VERSED 2 mg Medications (Bolus/Oral) Medication Time Given Dosage/Unit Administered By Reason VERSED 12/05/2016 5:56:25 PM 2 mg Albert Poole 2 mg VERSED given in lab by Albert Poole, THIERRY via Peripheral IV. Ordered by Kieran Rodriguez. FENTANYL 12/05/2016 5:56:54 PM 50 mcg Albert Poole 50 mcg FENTANYL given in lab by Albert Poole, THIERRY via Peripheral IV. Ordered by Kieran Rodriguez. 1% XYLOCAINE 12/05/2016 5:57:10 PM 5 mL Kieran Rodriguez Patient arrived on 5 mL 1% XYLOCAINE given by Kieran Rodriguez in Right Radial via Subcutaneous. Ord ered by Kieran Rodriguez. RADIAL COCKTAIL 12/05/2016 5:58:46 PM 5 mL (Bolus) Kieran Rodriguez 5 mL (Bolus) RADIAL COCKTAIL given in lab by Kieran Rodriguez via Radial. Using [Solution Name]. Ord ered by Kieran Rodriguez. 2.5 mg verapamil, 2500 units Heparin, 200mcg Nitro Medication (Drip) Medication Time Given Dosage/Unit Concentration/Unit Diluent (ml) Solution IV Solutions 12/05/2016 5:47:45 PM 0 mL (IV) 500 NaCl .9 Patient arrived on IV Solutions given by Kieran Rodriguez in Left Antecubital via Peripheral IV. Pum p/Drip Flow = 20 ml/hr using NaCl .9. Ordered by Kieran Rodriguez. Final Case Assessment Cardiovascular HR Rhythm NIBP Chest Pain 78 sr 125/74 0 Edema Present Skin color Skin None Normal Warm Dry Circulatory - Right Pulses Dorsalis Pedis Femoral Radial 2 2 2 Scale (0,1,2,3,4,d) Scale (0,1,2,3,4,d) Neurological State Oriented to time-place- Alert Moves all extremities person Respiration - General Respiration Rate SpO2 (%) O2 (lpm) (B/min) 18 98 0 Initial Case Assessment Cardiovascular HR Rhythm NIBP Chest Pain 80 sr 125/74 0 Edema Present Skin color Skin None Normal Warm Dry Circulatory - Right Pulses Dorsalis Pedis Femoral Radial 2 2 2 Scale (0,1,2,3,4,d) Scale (0,1,2,3,4,d) Neurological State Oriented to time-place- Alert Moves all extremities person Respiration - General Respiration Rate SpO2 (%) O2 (lpm) (B/min) 18 96 0 Respiration - Ventilator Type Intubation Type ET(oral) Chronological Log Time Study Chronological Log 17:45:22 Patient arrived via Bed. Positive Allens test performed by Dr. Mcdowell. 17:45:24 Patient Name, D.O.B, / Armband Verified By R.N. 17:45:49 Consent signed by the physician and the patient and verified by the Nursing Program Coordinator staff. 17:45:50 Pre-op and post- op instructions given; patient acknowledges understanding of instructions. 17:46:45 Verbal Stimulation=2 Physical Stimulation=2 Airway=2 Respiration=2 TOTAL=8. (0=absent, 1=li mited, 2=present) 17:46:56 Presedation assessment performed by Nursing Program Coordinator RN. 17:46:58 Patient has been NPO for More than 6Hrs. 17:47:01 Skin Breakdown-none present per patient. 17:47:29 A # 20 IV was noted in the Antecubital (left). Grade = 0 Patient arrived on IV Solutions given by Kieran Rodriguez in Left Antecubital via Peripheral I V. Pump/Drip Flow = 20 17:47:45 ml/hr using NaCl .9. Ordered by Kieran Rodriguez. Vitals capture started with the following parameters, Patient=Adult, Interval=15 min, Initial P tbtsbrz=037 mmHg, 17:48:06 Deflation Rate=5 mmHg 17:48:15 Vitals capture stopped. 17:48:27 Reference ECG taken 17:48:32 History and physical on the chart or being dictated. 17:49:08 Right groin and right radial prepped with 2% chlorhexidine, and with a 3 min. waiting time. Vitals capture started with the following parameters, Patient=Adult, Interval=15 min, Initial P msubrja=810 mmHg, 17:49:18 Deflation Rate=5 mmHg 17:49:58 HR=78 bpm, KKKV=544/91 mmhg, SpO2=97.0 %, Resp=11 B/min, Pérez=2 Assessment: Initial Case, HR=80 BPM, Rhythm=sr, WGCI=091/74 mmhg, Chest Pain=0, Edema=None, Col or=Normal, Skin = Warm, Dry 17:50:30 Right Pulses: Carl Ped=2, Femoral=2, Radial=2 Neurological: State=Alert, Ox3, WHEELER Respiration: Resp=18 B/min, SpO2=96 %, O2=0 lpm, Type=ET(Oral) 17:52:32 Reference ECG taken 17:55:01 HR=53 bpm, OENS=981/89 mmhg, SpO2=97.0 %, Resp=12 B/min, Pérez=2 17:56:25 2 mg VERSED given in lab by Albert Poole, THIERRY via Peripheral IV. Ordered by Johan Rodriguez. Time Out. Correct patient, correct procedure,correct physician, ,power injector not loaded with contrast with surgical 17:56:38 team present. Time Out Concurred by MD, individual staff and INTERMEDIATE TEACHER in procedure. Not loaded at t his time. 17:56:49 Pressure channel 1 zeroed. 17:56:54 50 mcg FENTANYL given in lab by Albert Poole, THIERRY via Peripheral IV. Ordered by Kieran Rodriguez. 17:56:59 Presedation re-assessment performed by Nursing Program Coordinator RN. 17:57:01 Case Start 17:57:03 Verbal Stimulation=2 Physical Stimulation=2 Airway=2 Respiration=2 TOTAL=8. (0=absent, 1=li mited, 2=present) Patient arrived on 5 mL 1% XYLOCAINE given by Kieran Rodriguez in Right Radial via Subcutaneou s. Ordered by Maliha 17:57:10 Kieran Rowell. 17:58:13 Access site was Radial Artery. right radial A SHEATH, FR6 TRANSRADIAL SLENDER 10CM FR 6 was advanced into the Radial (right) using the Perc utaneous 17:58:28 technique. 5 mL (Bolus) RADIAL COCKTAIL given in lab by Kieran Rodriguez via Radial. Using [Solution Name ]. Ordered by Maliha :58:46 Kieran Rowell. 2.5 mg verapamil, 2500 units Heparin, 200mcg Nitro A JR 4.0 INFINITI CATHETER FR 5 was advanced over a wire. OMNIPAQUE, 350 MG, 150ML 150ML was us ed for 17:59:15 injections. 17:59:54 HR=83 bpm, MGFD=055/77 mmhg, SpO2=94.0 %, Resp=22 B/min, Pérez=2 Recorded Pressure: LV, HR=90, Condition=Condition 1 18:01:13 (Left Ventricle) LV 115/3/9 18:01:28 The LV was manually injected with 10 cc's and visualized. OMNIPAQUE, 350 MG, 150ML 150ML us ed. Recorded Pressure: LV, Ao, HR=84, Condition=Condition 1 18:01:51 (Left Ventricle) LV 99/-1/2, (Aorta) Ao 92/63/77 18:02:02 The RCA was injected and visualized at various angles. OMNIPAQUE, 350 MG, 150ML 150ML use d. 18:03:31 Catheter was removed A JL 3.5 INFINITI CATHETER FR 5 was advanced over a wire. OMNIPAQUE, 350 MG, 150ML 150ML was u sed for 18:03:33 injections. Recorded Pressure: Ao, HR=79, Condition=Condition 1 18:04:35 (Aorta) Ao 113/71/89 18:04:57 HR=78 bpm, DZER=186/74 mmhg, SpO2=93.0 %, Resp=26 B/min, Pérez=2 18:05:12 The LCA was injected and visualized at various angles. OMNIPAQUE, 350 MG, 150ML 150ML use d. 18:06:00 Catheter was removed 18:06:05 Case End Assessment: Final Case, HR=78 BPM, Rhythm=sr, PJAQ=680/74 mmhg, Chest Pain=0, Edema=None, [place] r=Normal, Skin = Warm, Dry 18:06:53 Right Pulses: Carl Ped=2, Femoral=2, Radial=2 Neurological: State=Alert, Ox3, WHEELER Respiration: Resp=18 B/min, SpO2=98 %, O2=0 lpm 18:09:54 HR=81 bpm, PQMA=212/80 mmhg, SpO2=92.0 %, Resp=21 B/min, Pérez=2 Radial Compression Device Used. 12 mLs of air placed in BAND, RADIAL COMPRESSION TR LARGE 29 2 9CM. Affected 18:10:27 hand 96 % O2 saturation. 18:10:57 No case complications noted. 18:10:59 Cine recording checked. 18:11:03 Bedside Report will be given. 18:11:06 Contrast Scanned 18:14:53 Patient moved to [facility] End Study - Contrast Media Used In Study Contrast Total Opened (mL) Total Used (mL) Total Wasted (mL) Omnipaque 50 50 0 End Study - Maximum Contrast Load Max Contrast Load (mL) 703.1 End Study - Radiation Exposure Fluoro Time (minutes) 2.8 End Study - Patient Disposition Complications Transferred To Telemetry Bed
--- NOTE | 2016-12-05 20:08 | MA ---
cc: DARNELL PATRICK DATE 12/05/2016 DATE OF 1950 PROCEDURES PERFORMED 1. Left heart catheterization. 2. Selective right and left coronary angiography. 3. Left ventriculogram. INDICATION Angina / positive stress test. DESCRIPTION OF PROCEDURE Consent signed. The patient was brought into the cardiac medical lab assistant in a fasting state. The right groin and wrist were prepped and draped in sterile fashion. Using 1% lidocaine for local anesthesia and a micropuncture kit, a 6-Spanish sheath was inserted into the right radial artery. Antispasmodic cocktail given. Then selective right and left coronary angiography was performed with a JR-4 and JL-3.5 diagnostic catheter. Angiography was taken in multiple views. This was followed by advancing the JR guide into the left ventricle, hemodynamics, Left ventriculogram and pullback. All catheters were exchanged over a wire. The patient tolerated the procedure well without complications. Estimated blood loss less than 30 mL. Total contrast used 75 mL. The right wrist access site was closed with a TR band. RESULTS The left ventricular pressure was 99/-1 with an LVEDP of 2. The aortic pressure was 113/71 with a mean of 89. There was no gradient upon pullback from the left ventricle to aorta. Left ventriculogram revealed a symmetric, laurie ventricle with an estimated ejection fraction of 60%. ANGIOGRAPHY 1. Right coronary artery is dominant and has nonobstructive coronary artery disease. The right coronary artery gives of the PDA which is also patent with nonobstructive CAD and NORMA III flow. 2. The left main is long and patent with NORMA III flow. 3. The LAD is a transapical vessel, wraps around the apex of the LV. It has minimal luminal irregularities, however, for the most part nonobstructive coronary artery disease. It has one big diagonal and then a couple of small vessel diagonals. All of them patent with NORMA III flow. 4. The left circumflex artery is patent with NORMA III flow and nonobstructive coronary artery disease giving off four OM vessels which are all patent with NORMA III flow. CONCLUSION 1. Nonobstructive coronary artery disease. 2. Preserved LV systolic function. 3. Hypertensive heart disease RECOMMENDATIONS Continue aggressive medical management for primary prevention of coronary artery disease. The patient will go to the [facility] for post cath care. MD MARLON Cervantes /6:22 PM /7:53 PM [facility]PITALFanny
[2016-12-06] VITALS (15 sets, daily range): BP systolic 115–129; BP diastolic 67–78; PULSE 56–97; RESP 20; TEMP 98.4–98.9; O2SAT 97–99
[2016-12-06] MEDS: NITROGLYCERIN 2% OINT 1 GM PACKET TOPICAL SCH ×3 (05:25→11:18)
[2016-12-06] MEDS: ACETAMINOPHEN/HYDROcodone 325 MG/7.5 MG TAB PO PRN ×2 (05:33→09:16)
[2016-12-06] MEDS: ATORVASTATIN 40 MG TAB PO SCH (09:16)
[2016-12-06] MEDS: ASPIRIN EC 81 MG TABEC PO SCH (09:16)
[2016-12-06] MEDS: SODIUM CHLORIDE 0.9% FLUSH 10 ML FLUSH IV FLUSH SCH (09:17)
[2016-12-06] MEDS: CARVEDILOL 6.25 MG TAB PO SCH (09:17)
--- NOTE | 2016-12-06 11:11 | ECHRPT ---
Indication: Chest pain, unspecified CONCLUSIONS Normal left ventricular size. Mild concentric left ventricular hypertrophy. The left ventricular systolic function is normal with an estimated ejection fraction in the range of 55-60%. No regional wall motion abnormalities are present. Left ventricular diastolic function parameters are normal. Structurally normal tricuspid valve. There is mild tricuspid valve regurgitation. The estimated pulmonary arterial pressure is 42 mmHg. There is estimated mild pulmonary hypertension present (range 40-50 mmHg). BP: 129 / 75 HR: 60 Rhythm: Sinus MEASUREMENTS (Male / Female) Normal Values Technical Quality:Good 2D ECHO LV Diastolic Diameter PLAX 5.1 cm 4.2 - 5.9 / 3.9 - 5.3 cm LV Systolic Diameter PLAX 3.8 cm IVS Diastolic Thickness 1.1 cm 0.6 - 1.0 / 0.6 - 0.9 cm LVPW Diastolic Thickness 1.1 cm 0.6 - 1.0 / 0.6 - 0.9 cm LV Relative Wall Thickness 0.4 RV Internal Dim ED PLAX 2.2 cm LVOT Diameter 2.0 cm M-MODE Aortic Root Diameter MM 2.6 cm LA Systolic Diameter MM 4.1 cm LA Ao Ratio MM 1.6 AV Cusp Separation MM 2.1 cm DOPPLER AV Peak Velocity 167.0 cm/s AV Peak Gradient 11.2 mmHg LVOT Peak Velocity 132.0 cm/s LVOT Peak Gradient 7.0 mmHg AV Area Cont Eq pk 2.5 cm Mitral E Point Velocity 66.1 cm/s Mitral A Point Velocity 78.5 cm/s Mitral E to A Ratio 0.8 LV E' Lateral Velocity 9.5 cm/s Mitral E to LV E' Lateral Ratio 7.0 LV E' Septal Velocity 7.3 cm/s Mitral E to LV E' Septal Ratio 9.0 TR Peak Velocity 285.0 cm/s TR Peak Gradient 32.5 mmHg PV Peak Velocity 132.0 cm/s PV Peak Gradient 7.0 mmHg FINDINGS LEFT VENTRICLE Normal left ventricular size. Mild concentric left ventricular hypertrophy. The left ventricular systolic function is normal with an estimated ejection fraction in the range of 55-60%. No regional wall motion abnormalities are present. Left ventricular diastolic function parameters are normal. RIGHT VENTRICLE Normal right ventricular size and systolic function. LEFT ATRIUM The left atrial size is normal. RIGHT ATRIUM The right atrial size is normal. ATRIAL SEPTUM Normal atrial septal thickness without atrial level shunting by limited color doppler interrogation. AORTA The aortic root and proximal ascending aorta are normal in size on limited imaging. MITRAL VALVE Structurally normal mitral valve. No mitral valve stenosis or regurgitation. AORTIC VALVE Trileaflet aortic valve. No aortic valve stenosis or regurgitation. TRICUSPID VALVE Structurally normal tricuspid valve. There is mild tricuspid valve regurgitation. The estimated pulmonary arterial pressure is 42 mmHg. There is estimated mild pulmonary hypertension present (range 40-50 mmHg). PULMONARY VALVE The pulmonary valve is not well visualized. VESSELS The inferior vena cava is normal in size. PERICARDIUM No pericardial effusion. Ben Avalos MD, FACC (Electronically Signed) Final Date:06 December 2016 11:10
[2016-12-06] MEDS ORDERED: ASPI-99 PO (13:37)
[2016-12-06] MEDS ORDERED: ATOR40TA16 PO (13:37)
[2016-12-06] MEDS ORDERED: CARV6.25 PO (13:37)
--- NOTE | 2016-12-06 13:39 | HHI.PR ---
Subjective Remarks Follow-up unstable angina 12/05/16-patient seen and examined, currently denies any chest pain or shortness of breath. Case discussed with cardiology, Dr. Boyce. Admits of noncompliance with medical care 12/06/16-patient seen and examined, she denies any chest pain or shortness of breath other than feeling tired. She had a normal clean left heart catheterization yesterday Objective Vitals Vital Signs Date Time Temp Pulse Resp B/P Pulse Ox O2 Delivery O2 Flow Rate FiO2 12/06/16 12:00 98.4 97 20 115/67 99 12/06/16 11:36 18 12/06/16 09:00 78 12/06/16 08:00 98.9 20 129/75 98 12/06/16 08:00 68 12/06/16 07:00 61 12/06/16 06:15 57 12/06/16 05:03 68 12/06/16 04:07 60 125/78 97 12/06/16 04:00 62 12/06/16 03:00 64 12/06/16 02:00 70 12/06/16 01:00 62 12/06/16 00:00 75 117/76 98 12/06/16 00:00 68 12/05/16 23:00 61 12/05/16 22:00 68 12/05/16 21:00 76 12/05/16 20:00 98.9 76 140/76 97 12/05/16 20:00 78 12/05/16 19:00 73 12/05/16 17:05 74 12/05/16 16:22 98.1 72 20 137/77 97 12/05/16 16:00 72 12/05/16 15:00 65 12/05/16 14:08 65 I/O 12/05/16 12/05/16 12/05/16 12/06/16 12/06/16 12/06/16 07:00 15:00 23:00 07:00 15:00 23:00 Intake Total 240 ml 820 ml 480 ml Output Total 500 ml 1052 ml Balance 240 ml 320 ml -572 ml Intake Oral 240 ml 820 ml 480 ml Output Urine Total 500 ml 1052 ml # Voids 2 1 # Bowel Movements 1 Result Diagram: 12/04/1610 12/04/1610 Imaging Last Impressions Chest X-Ray 12/04/16 0806 Signed Impressions: Service Date/Time: Sunday, December 04, 2016 08:15 - CONCLUSION: Underaerated. Otherwise, negative. Sher Alarcon MD FACR Myocardial Perfusion Scan Nuc Med 12/04/16 0000 Signed Impressions: Service Date/Time: Sunday, December 04, 2016 12:39 - CONCLUSION: Small focus of mild stress-induced ischemia of the lateral wall. RISK CATEGORY: Intermediate Avi Altamirano MD Objective Remarks GENERAL: NAD SKIN: Warm and dry. HEAD: Normocephalic. EYES: No scleral icterus. No injection or drainage. NECK: Supple, trachea midline. No JVD or lymphadenopathy. CARDIOVASCULAR: Regular rate and rhythm without murmurs, gallops, or rubs. RESPIRATORY: Breath sounds equal bilaterally. No accessory muscle use. GASTROINTESTINAL: Abdomen soft, non-tender, nondistended. MUSCULOSKELETAL: No cyanosis, or edema. BACK: Nontender without obvious deformity. No CVA tenderness. Procedures None A/P Problem List: (1) Unstable angina ICD Code: I20.0 Status: Acute (2) Chest pain ICD Code: R07.9 Status: Acute (3) Elevated blood pressure reading ICD Code: R03.0 Status: Acute (4) Benign hypertension ICD Code: I10 Status: Acute (5) Hyperlipidemia ICD Code: E78.5 Status: Acute (6) IFG (impaired fasting glucose) ICD Code: R73.01 Status: Acute Assessment and Plan 66-year-old female with Unstable angina Mildly abnormal SPECT for which combat engineer has been consulted and patient is status post normal clean left heart catheterization 05/13 Continue with heparin drip, beta sophie, Lipitor, aspirin, nitroglycerin paste, morphine when necessary. 2-D echo with EF 55-60% Hypertension Normotensive on Coreg Hyperlipidemia LDL of 117 Continue with Lipitor Impaired fasting glucose No known history of diabetes type 2, hemoglobin A1c pending and treat accordingly DVT prophylaxis: Heparin Problem Qualifiers (1) Chest pain: Joe Yeh MD Dec 06, 2016 13:39
--- NOTE | 2016-12-06 13:42 | HHI.DS ---
Discharge Summary Admission Date Dec 04, 2016 at 09:51 Discharge Date: Dec 06, 2016 Admitting Diagnosis chest pain (1) Unstable angina ICD Code: I20.0 (2) Chest pain ICD Code: R07.9 (3) Elevated blood pressure reading ICD Code: R03.0 (4) Benign hypertension ICD Code: I10 (5) Hyperlipidemia ICD Code: E78.5 (6) IFG (impaired fasting glucose) ICD Code: R73.01 Procedures None Brief History - From Admission Written by Ceferino Clark, acting as scribe for Dr. Wolff on 12/04/16 at 10: 32. 66-year-old female with gastroesophageal reflux who presented to the emergency department because of chest discomfort. Patient states that approximately 5:30 this morning and she started developing severe left-sided chest pain along the left sternal border. She states that the pain is associated with pleuritic pain , difficulty in taking a deep breath. She denied any nausea, vomiting, diaphoresis, lightheadedness, dizziness. Patient indicates that the pain was initially 9/10 on a pain scale and after being in the emergency department is now down to 5/10 on a pain scale. Patient indicates that she is in normal state of health until last evening she went out at approximately 2 AM to do online gambling and she came home approximately 5 AM and she ate herself a peanut butter sandwich. She laid down to go to sleep and she woke up at 5:30 with the discomfort. The discomfort did not go away so she came to the emergency department for evaluation. Patient was evaluated in emergency department recommended observation in the chest pain center. Patient has had previous chest pain Center admission in 2012 in which she was ruled out for acute coronary event at that time. She had a nuclear stress test done then also which was negative. CBC/BMP: 12/04/16 0810 12/04/16 0810 Significant Findings Laboratory Tests Test 12/04/16 12/04/16 12/04/16 12/04/16 08:10 10:50 14:57 22:45 Estimat Glomerular Filtration 85 ML/MIN (>89) Rate Random Glucose 122 MG/DL (74-106) Aspartate Amino Transf 13 U/L (15-37) (AST/SGOT) Troponin I LESS THAN 0.02 LESS THAN 0.02 LESS THAN 0.02 NG/ML NG/ML NG/ML (0.02-0.05) (0.02-0.05) (0.02-0.05) Albumin 3.3 GM/DL (3.4-5.0) Activated Partial 47.8 SEC Thromboplast Time (24.3-30.1) Test 12/05/16 05:05 Activated Partial 46.4 SEC Thromboplast Time (24.3-30.1) LDL Cholesterol 117 MG/DL (0-99) PE at Discharge GENERAL: NAD SKIN: Warm and dry. HEAD: Normocephalic. EYES: No scleral icterus. No injection or drainage. NECK: Supple, trachea midline. No JVD or lymphadenopathy. CARDIOVASCULAR: Regular rate and rhythm without murmurs, gallops, or rubs. RESPIRATORY: Breath sounds equal bilaterally. No accessory muscle use. GASTROINTESTINAL: Abdomen soft, non-tender, nondistended. MUSCULOSKELETAL: No cyanosis, or edema. BACK: Nontender without obvious deformity. No CVA tenderness. Hospital Course Patient was admitted secondary to unstable angina. Secondary to abnormal SPECT she underwent left heart catheterizations however no stent was placed. She was continued on medical management with beta sophie, aspirin, Lipitor, heparin. DVT and GI prophylaxis were provided. Prior to discharge, patient's condition improved. Pt Condition on Discharge: Stable Discharge Disposition: Discharge Home Discharge Time: <= 30 minutes Discharge Instructions DIET: Follow Instructions for: Heart Healthy Diet Activities you can perform: Regular-No Restrictions Follow up Referrals: PCP Follow-up - 1 Week New Medications: Aspirin DR (Adult Aspirin EC Low Strength) 81 Mg Tabec 162 MG PO DAILY Prevent Blood Clot #30 TAB Atorvastatin (Atorvastatin) 40 Mg Tab 40 MG PO DAILY Cholesterol Management #30 Ref 3 TAB Carvedilol (Coreg) 6.25 Mg Tab 6.25 MG PO Q12HR Blood Pressure Management #60 Ref 3 TAB Joe Yeh MD Dec 06, 2016 13:42
[2016-12-06 16:49] LABS: HEMOGLOBIN A1b 1.6 %; HEMOGLOBIN Ao 85.6 %; HEMOGLOBIN LA1C 1.8 %; HEMOGLOBIN P3 3.6 %
== END 2016-12-06 15:30 | disposition home or self-care (01) ==
LOC: PHED 07:54 → PHEDA 09:51 → PH3B 10:27 → HCIN 20:36
PROVIDERS: ADMIT Hospitalist; ATTEND Hospitalist
DX: R07.89 Other chest pain (principal); I20.0 Unstable angina; R06.02 Shortness of breath; R51 Headache; R94.39 Abnormal result of other cardiovascular function study; R00.1 Bradycardia, unspecified; R03.0 Elevated blood-pressure reading, without diagnosis of hypertension; K21.9 Gastro-esophageal reflux disease without esophagitis; R73.01 Impaired fasting glucose
CPT/HCPCS: 71010; 78452; 80053; 80061; 82550; 83036; 83690; 83735; 84484; 85025; 85379; 85610; 85730; 93005; 93017; 93306; 93458; 99285; A9502; C1769; C1893; G0378; J1644; J2250; J2270; J2785; J3010; 99281; Q9967

== ENCOUNTER 2016-12-29 05:26 | Emergency (ER) | payer MEDICARE, OTHER ==
[~2016-12-29] VITALS: Ht 157.5 cm; Wt 110.9 kg
[~2016-12-29 05:26] MED LIST changes: +ASPI-99 PO; +ATOR40TA16 PO; +CARV6.25 PO; -CIPR750T10 PO; -LORTA5 PO; -METR-1 PO
[2016-12-29 05:28] VITALS: BP 121/71; PULSE 78; RESP 16; TEMP 98.5; O2SAT 99
--- NOTE | 2016-12-29 06:08 | PD ---
HPI Chief Complaint: Abdominal Pain Time Seen by Provider: 05:54 Travel History International Travel<30 days: No Contact w/Intl Traveler<30days: No Traveled to known affect area: No History of Present Illness HPI The patient is a 66-year-old female that complains of midline suprapubic pain with nausea and diarrhea for 2 days. She denies any fever. She denies any dysuria, frequency or urgency. She does have a history of diverticulitis but her pain is not on the left lower quadrant like it usually is with diverticulitis. She denies any vomiting. She denies any flank pain. PFSH Past Medical History Autoimmune Disease: No Anxiety: Yes Depression: No Heart Rhythm Problems: No Cancer: No Cardiac Catheterization: Yes Cardiovascular Problems: Yes High Cholesterol: Yes Chemotherapy: No Chest Pain: No Congestive Heart Failure: No Cerebrovascular Accident: No Diabetes: No Diminished Hearing: No Diverticulitis: Yes Endocrine: No GERD: Yes Genitourinary: No Hypertension: Yes Immune Disorder: No Musculoskeletal: No Neurologic: No Psychiatric: No Reproductive: No Respiratory: No Migraines: No Radiation Therapy: No Seizures: No Sickle Cell Disease: No Thyroid Disease: No Tetanus Vaccination: < 5 Years ?: Not Menopausal: Yes : 3 Para: 2 : 1 Past Surgical History AICD: No Arteriovenous Shunt: No Section: Yes (x1) Coronary Artery Bypass Graft: No Gynecologic Surgery: Yes () Hysterectomy: No Insulin Pump: No Joint Replacement: No Pacemaker: No Other Surgery: Yes Social History Alcohol Use: Yes (Occasionally) Tobacco Use: No Substance Use: No (hx of using "pot") Allergies-Medications (Allergen,Severity, Reaction): Coded Allergies: Penicillin (Verified Allergy, Severe, HIVES, 12/29/16) Aspirin (Verified Adverse Reaction, Severe, ABD PAIN, 12/29/16) Reported Meds & Prescriptions Reported Meds & Active Scripts Active Coreg (Carvedilol) 6.25 Mg Tab 6.25 Mg PO Q12HR Atorvastatin (Atorvastatin Calcium) 40 Mg Tab 40 Mg PO DAILY Adult Aspirin EC Low Strength (Aspirin) 81 Mg Tabec 162 Mg PO DAILY Review of Systems Except as stated in HPI: all other systems reviewed are Neg Physical Exam Narrative GENERAL: The patient is alert, obese, oriented 3 and moderate apparent distress with her midline suprapubic discomfort. Her vital signs are normal. SKIN: Focused skin assessment warm/dry. HEAD: Atraumatic. Normocephalic. EYES: Pupils equal and round. No scleral icterus. No injection or drainage. ENT: No nasal bleeding or discharge. Mucous membranes pink and moist. NECK: Trachea midline. No JVD. CARDIOVASCULAR: Regular rate and rhythm. No murmur appreciated. RESPIRATORY: No accessory muscle use. Clear to auscultation. Breath sounds equal bilaterally. GASTROINTESTINAL: Abdomen soft, non-tender except for some extremely minimal discomfort to deep direct palpation in the midline suprapubic area, nondistended. Hepatic and splenic margins not palpable. No guarding or rebound is present. MUSCULOSKELETAL: No obvious deformities. No clubbing. No cyanosis. No edema. NEUROLOGICAL: Awake and alert. No obvious cranial nerve deficits. Motor grossly within normal limits. Normal speech. PSYCHIATRIC: Appropriate mood and affect; insight and judgment normal. Data Data Last Documented VS Vital Signs Date Time Temp Pulse Resp B/P Pulse Ox O2 Delivery O2 Flow Rate FiO2 12/29/16 06:30 60 17 136/70 97 Room Air 12/29/16 05:28 98.5 Orders Complete Blood Count With Diff (12/29/16 06:04) Comprehensive Metabolic Panel (12/29/16 06:04) Lipase (12/29/16 06:04) Urinalysis - C+S If Indicated (12/29/16 06:04) Ct Abd/Pel W Iv Contrast(Rout) (12/29/16 06:04) Iv Access Insert/Monitor (12/29/16 06:04) Ecg Monitoring (12/29/16 06:04) Oximetry (12/29/16 06:04) Sodium Chloride 0.9% Flush (Ns Flush) (12/29/16 06:15) Ondansetron Inj (Zofran Inj) (12/29/16 06:15) Sodium Chlor 0.9% 1000 Ml Inj (Ns 1000 M (12/29/16 06:15) Urine Culture (12/29/16 06:10) Ondansetron Inj (Zofran Inj) (12/29/16 07:00) Hydromorphone Pf Inj (Dilaudid Pf Inj) (12/29/16 07:00) Labs Laboratory Tests Test 12/29/16 06:10 White Blood Count 10.0 TH/MM3 Red Blood Count 4.28 MIL/MM3 Hemoglobin 12.9 GM/DL Hematocrit 38.2 % Mean Corpuscular Volume 89.2 FL Mean Corpuscular Hemoglobin 30.1 PG Mean Corpuscular Hemoglobin 33.8 % Concent Red Cell Distribution Width 12.1 % Platelet Count 243 TH/MM3 Mean Platelet Volume 8.8 FL Neutrophils (%) (Auto) 73.6 % Lymphocytes (%) (Auto) 19.0 % Monocytes (%) (Auto) 5.9 % Eosinophils (%) (Auto) 1.3 % Basophils (%) (Auto) 0.2 % Neutrophils # (Auto) 7.4 TH/MM3 Lymphocytes # (Auto) 1.9 TH/MM3 Monocytes # (Auto) 0.6 TH/MM3 Eosinophils # (Auto) 0.1 TH/MM3 Basophils # (Auto) 0.0 TH/MM3 CBC Comment DIFF FINAL Differential Comment Urine Collection Type CLEAN CATCH Urine Color YELLOW Urine Turbidity SLIGHT Urine pH 7.0 Urine Specific [place] 1.017 Urine Protein NEG mg/dL Urine Glucose (UA) NEG mg/dL Urine Ketones 80 OR GREATER mg/dL Urine Occult Blood NEG Urine Nitrite NEG Urine Bilirubin NEG Urine Leukocyte Esterase TRACE Urine WBC 6-8 /hpf Urine Squamous Epithelial > 8 /hpf Cells Urine Amorphous Sediment FEW Urine Bacteria MOD /hpf Microscopic Urinalysis Comment CULTURE INDICATED Urine Collection Time 0610 MDM Medical Decision Making Medical Screen Exam Complete: Yes Emergency Medical Condition: Yes Medical Record Reviewed: Yes Differential Diagnosis Cystitis, diverticulitis, colitis, appendicitis, PID Narrative Course It is now 0700 and the patient is transferred to Dr. Upton. Edinson Clark MD Dec 29, 2016 06:08
[2016-12-29] MEDS ORDERED: ONDANSETRON HCL 4 MG/2 ML VIAL IV ONE ×2 (06:15→07:00)
[2016-12-29] MEDS ORDERED: SODIUM CHLOR 0.9% 1000 ML INJ 1,000 ML IV SCH (06:15)
[2016-12-29] MEDS ORDERED: SODIUM CHLORIDE 0.9% FLUSH 10 ML FLUSH IV FLUSH PRN (06:15)
[2016-12-29 06:30] VITALS: BP 136/70; PULSE 60; RESP 17; O2SAT 97
[2016-12-29 06:31] LABS: BLOOD, URINE NEG (NEG); GLUCOSE,URINE NEG (NEG); NITRITE,URINE NEG (NEG)
[2016-12-29 06:38] LABS: KETONE, URINE 80 OR GREATER mg/dL (NEG)
[2016-12-29 06:39] LABS: METHOD OF COLLECTION CLEAN CATCH; URINE COLOR YELLOW (YELLW/STRAW)
[2016-12-29 06:40] LABS: BACTERIA, URINE MOD /hpf; COMMENT (UR) CULTURE INDICATED; CULTURE IF INDICATED CULTURE INDICATED; SQUAMOUS EPITHELIAL CELL URINE > 8 /hpf (0-5)
[2016-12-29 06:49] LABS: AUTOMATED NEUTROPHIL # 7.4 TH/MM3 (1.8-7.7); BASOPHIL % 0.2 % (0.0-2.0); EOSINOPHIL # 0.1 TH/MM3 (0-0.4); EOSINOPHIL % 1.3 % (0.0-4.0); HEMATOCRIT 38.2 % (35.0-46.0); HEMO FLAGS DIFF FINAL; LYMPHOCYTE # 1.9 TH/MM3 (1.0-4.8); MEAN CELL VOLUME 89.2 FL (80.0-100.0); MEAN CORPUSCULAR HEMOGLOBIN 30.1 PG (27.0-34.0); MEAN CORPUSCULAR HGB CONC 33.8 % (32.0-36.0); MONO % 5.9 % (0.0-8.0); NEUT % 73.6 % (16.0-70.0); PLATELET COUNT 243 TH/MM3 (150-450); RED BLOOD COUNT 4.28 MIL/MM3 (4.00-5.30); RED CELL DISTRIBUTION WIDTH 12.1 % (11.6-17.2)
[2016-12-29 07:00] VITALS: RESP 16; O2SAT 98
[2016-12-29] MEDS ORDERED: HYDROmorphone HCL PF 1 MG/ML VIAL IVP ONE (07:00)
[2016-12-29 07:09] LABS: CHLORIDE 106 MEQ/L (98-107); SODIUM (NA) 141 MEQ/L (136-145)
[2016-12-29 07:12] VITALS: BP 152/82; PULSE 62; RESP 16; TEMP 98.8; O2SAT 99
[2016-12-29 07:13] LABS: ANION GAP 11 MEQ/L (5-15); BICARBONATE 24.3 MEQ/L (21.0-32.0)
[2016-12-29 07:14] LABS: BLOOD UREA NITROGEN 13 MG/DL (7-18)
[2016-12-29 07:16] LABS: ALT (GPT) 20 U/L (10-53); AST (GOT) 16 U/L (15-37); GLOMERULAR FILTRATION RATE 83 ML/MIN (>89)
[2016-12-29 07:18] LABS: TOTAL BILIRUBIN ADULT 0.6 MG/DL (0.2-1.0)
[2016-12-29 07:19] LABS: ALKALINE PHOSPHATASE 116 U/L (45-117)
[2016-12-29] MEDS ORDERED: IOHEXOL 350 MG/ML 10 ML VIAL (for RAD DIAG) IV ONE (07:57)
--- NOTE | 2016-12-29 08:08 | RADRPT ---
EXAM DATE/TIME: 12/29/2016 07:41 [facility] COMPARISON: CT ABDOMEN & PELVIS W CONTRAST, May 20, 2015, 4:06. INDICATIONS : Lower abdominal pain, nausea and diarrhea for two days. IV CONTRAST: 85 cc Omnipaque 350 (iohexol) IV ORAL CONTRAST: No oral contrast ingested. RADIATION DOSE: 22.29 CTDIvol (mGy) MEDICAL HISTORY : Gastroesophageal reflux disease. Diverticulitis. Hypertension. SURGICAL HISTORY : section. ENCOUNTER: Initial ACUITY: 2 days PAIN SCALE: 9/10 LOCATION: lower quadrant midline TECHNIQUE: Volumetric scanning of the abdomen and pelvis was performed. Using automated exposure control and ad justment of the mA and/or kV according to patient size, radiation dose was kept as low as reasonably achievable to obtain optimal diagnostic quality images. DICOM format image data is available electro nically for review and comparison. FINDINGS: The lung base is are clear. The liver, spleen, pancreas and adrenals are unremarkable. There are no gallstones. There is symmetric renal function There is no adenopathy Region of the cecum and terminal ileum are unremarkable. There is very minimal prominence to a parti ally air-filled appendix without inflammatory changes. Appendix measures 9.5 mm. Trace free fluid is present in the pelvis. The adnexal regions are unremarkable.The uterus is mildl y prominent. The abdominal wall is intact Review of bone windows reveals only degenerative changes. CONCLUSION: 1. Trace free fluid in the pelvis 2. Mild prominence to be partially air-filled appendix without inflammatory changes. Correlation is suggested. Sher Alarcon MD FACR on December 29, 2016 at 8:01 Board Certified Radiologist. This report was verified electronically.
--- NOTE | 2016-12-29 08:16 | PD ---
Physical Exam Narrative GENERAL: Well-nourished, well-developed patient. SKIN: Warm and dry. HEAD: Normocephalic and atraumatic. EYES: No injection or drainage. ENT: No nasal drainage noted. NECK: Supple, trachea midline. CARDIOVASCULAR: Regular rate and rhythm RESPIRATORY:no increased effort. No accessory muscle use. GASTROINTESTINAL: Abdomen soft, non-tender, nondistended. EXTREMITIES: No edema. NEUROLOGICAL: Awake and alert. Motor and sensory grossly within normal limits. Normal speech. Data Data Last Documented VS Vital Signs Date Time Temp Pulse Resp B/P Pulse Ox O2 Delivery O2 Flow Rate FiO2 12/29/16 08:27 67 16 145/76 99 12/29/16 07:12 98.8 Room Air Orders Complete Blood Count With Diff (12/29/16 06:04) Comprehensive Metabolic Panel (12/29/16 06:04) Lipase (12/29/16 06:04) Urinalysis - C+S If Indicated (12/29/16 06:04) Ct Abd/Pel W Iv Contrast(Rout) (12/29/16 06:04) Iv Access Insert/Monitor (12/29/16 06:04) Ecg Monitoring (12/29/16 06:04) Oximetry (12/29/16 06:04) Sodium Chloride 0.9% Flush (Ns Flush) (12/29/16 06:15) Ondansetron Inj (Zofran Inj) (12/29/16 06:15) Sodium Chlor 0.9% 1000 Ml Inj (Ns 1000 M (12/29/16 06:15) Urine Culture (12/29/16 06:10) Ondansetron Inj (Zofran Inj) (12/29/16 07:00) Hydromorphone Pf Inj (Dilaudid Pf Inj) (12/29/16 07:00) Iohexol 350 Inj (Omnipaque 350 Inj) (12/29/16 07:57) Labs Laboratory Tests Test 12/29/16 06:10 White Blood Count 10.0 TH/MM3 Red Blood Count 4.28 MIL/MM3 Hemoglobin 12.9 GM/DL Hematocrit 38.2 % Mean Corpuscular Volume 89.2 FL Mean Corpuscular Hemoglobin 30.1 PG Mean Corpuscular Hemoglobin 33.8 % Concent Red Cell Distribution Width 12.1 % Platelet Count 243 TH/MM3 Mean Platelet Volume 8.8 FL Neutrophils (%) (Auto) 73.6 % Lymphocytes (%) (Auto) 19.0 % Monocytes (%) (Auto) 5.9 % Eosinophils (%) (Auto) 1.3 % Basophils (%) (Auto) 0.2 % Neutrophils # (Auto) 7.4 TH/MM3 Lymphocytes # (Auto) 1.9 TH/MM3 Monocytes # (Auto) 0.6 TH/MM3 Eosinophils # (Auto) 0.1 TH/MM3 Basophils # (Auto) 0.0 TH/MM3 CBC Comment DIFF FINAL Differential Comment Urine Collection Type CLEAN CATCH Urine Color YELLOW Urine Turbidity SLIGHT Urine pH 7.0 Urine Specific [place] 1.017 Urine Protein NEG mg/dL Urine Glucose (UA) NEG mg/dL Urine Ketones 80 OR GREATER mg/dL Urine Occult Blood NEG Urine Nitrite NEG Urine Bilirubin NEG Urine Leukocyte Esterase TRACE Urine WBC 6-8 /hpf Urine Squamous Epithelial > 8 /hpf Cells Urine Amorphous Sediment FEW Urine Bacteria MOD /hpf Microscopic Urinalysis Comment CULTURE INDICATED Urine Collection Time 0610 Sodium Level 141 MEQ/L Potassium Level 4.0 MEQ/L Chloride Level 106 MEQ/L Carbon Dioxide Level 24.3 MEQ/L Anion Gap 11 MEQ/L Blood Urea Nitrogen 13 MG/DL Creatinine 0.83 MG/DL Estimat Glomerular Filtration 83 ML/MIN Rate Random Glucose 133 MG/DL Calcium Level 9.7 MG/DL Total Bilirubin 0.6 MG/DL Aspartate Amino Transf 16 U/L (AST/SGOT) Alanine Aminotransferase 20 U/L (ALT/SGPT) Alkaline Phosphatase 116 U/L Total Protein 7.9 GM/DL Albumin 3.1 GM/DL Lipase 65 U/L [facility] Supervised Visit with FANTASMA: No Interpretation(s) Last 24 hours Impressions Abdomen/Pelvis CT 12/29/16 0604 Signed Impressions: Service Date/Time: Thursday, December 29, 2016 07:41 - CONCLUSION: 1. Trace free fluid in the pelvis 2. Mild prominence to be partially air-filled appendix without inflammatory changes. Correlation is suggested. Sher Alarcon MD FACR ua with signs of infection Narrative Course Signed over to me to follow CAT scan and reevaluate. CT with mild prominence to partially air-filled appendix without inflammatory change, patient currently nontender. History of suprapubic pain with nausea and diarrhea. We' ll discuss with Gen. surgery Patient denies any new complaints and states that they are feeling better with no current pain. Patient happy with care, all questions answered. Patient knows that follow up is incumbent on them and to return to the emergency room immediately if new or worsening symptoms develop. Patient given strict return precautions, vitals reviewed and are normal, agrees to further workup as an outpatient. Physician Communication Physician Communication dr vargas states given no inflammatory changes and clinically stable can go home Diagnosis Primary Impression: Abdominal pain Qualified Code: R10.30 - Lower abdominal pain Patient Instructions: General Instructions Additional Instruction: Return with any fever, return of abdominal pain or other concerns, follow with primary tomorrow for recheck, Tylenol as needed for discomfort Med/Other Pt SpecificInfo: Prescription(s) given Scripts Ciprofloxacin 500 Mg [id number] Mg PO BID 5 Days Prov:Mikayla Grimm MD 12/29/16 Disposition: 01 DISCHARGE HOME Condition: Stable Mikayla Grimm MD Dec 29, 2016 08:16
[2016-12-29] MEDS ORDERED: CIPR500T2 PO (08:21)
[2016-12-29 08:27] VITALS: BP 145/76
[2016-12-30] MEDS ORDERED: METR-1 PO (05:22)
[2016-12-30] MEDS ORDERED: PROM25TA10 PO (05:22)
[2016-12-30] MEDS ORDERED: TYLETAB34 PO (05:22)
== END 2016-12-29 08:37 | disposition home or self-care (01) ==
LOC: PHED 05:26
DX: R10.30 Lower abdominal pain, unspecified (principal); R11.0 Nausea; R19.7 Diarrhea, unspecified; I10 Essential (primary) hypertension; E78.00 Pure hypercholesterolemia, unspecified; Z87.19 Personal history of other diseases of the digestive system; Z86.59 Personal history of other mental and behavioral disorders; Z86.79 Personal history of other diseases of the circulatory system
CPT/HCPCS: 74177; 80053; 81001; 83690; 85025; 87086; 96361; 96374; 96375; 96376; 99285; J1170; J2405; J7030; Q9967

== ENCOUNTER 2016-12-30 01:47 | Emergency (ER) | payer OTHER ==
[~2016-12-30] VITALS: Ht 157.5 cm; Wt 112.1 kg
[~2016-12-30 01:47] MED LIST changes: +CIPR500T2 PO
[2016-12-30 01:53] VITALS: BP 151/75; PULSE 75; RESP 18; TEMP 98.3; O2SAT 100
[2016-12-30] MEDS ORDERED: SODIUM CHLOR 0.9% 1000 ML INJ 1,000 ML IV SCH (02:58)
[2016-12-30 03:00] VITALS: BP 152/93; PULSE 72; RESP 20; O2SAT 98
[2016-12-30] MEDS ORDERED: MORPHINE SULFATE 4 MG/ML INJ IV PUSH ONE (03:00)
[2016-12-30] MEDS ORDERED: SODIUM CHLORIDE 0.9% FLUSH 10 ML FLUSH IV FLUSH PRN (03:00)
[2016-12-30] MEDS ORDERED: ONDANSETRON HCL 4 MG/2 ML VIAL IVP ONE (03:00)
[2016-12-30 03:13] LABS: AUTOMATED NEUTROPHIL # 8.6 TH/MM3 (1.8-7.7); BASOPHIL % 0.2 % (0.0-2.0); BLOOD, URINE NEG (NEG); EOSINOPHIL # 0.1 TH/MM3 (0-0.4); EOSINOPHIL % 1.1 % (0.0-4.0); GLUCOSE,URINE NEG (NEG); HEMATOCRIT 35.8 % (35.0-46.0); HEMO FLAGS DIFF FINAL; KETONE, URINE NEG (NEG); LYMPH % 17.4 % (9.0-44.0); LYMPHOCYTE # 2.1 TH/MM3 (1.0-4.8); MEAN CELL VOLUME 89.9 FL (80.0-100.0); MEAN CORPUSCULAR HEMOGLOBIN 30.1 PG (27.0-34.0); MEAN CORPUSCULAR HGB CONC 33.5 % (32.0-36.0); MONO % 8.2 % (0.0-8.0); NEUT % 73.1 % (16.0-70.0); NITRITE,URINE NEG (NEG); PH, URINE 5.5 (5.0-8.5); PLATELET COUNT 233 TH/MM3 (150-450); RED BLOOD COUNT 3.98 MIL/MM3 (4.00-5.30); RED CELL DISTRIBUTION WIDTH 12.1 % (11.6-17.2); WHITE BLOOD COUNT 11.8 TH/MM3 (4.0-11.0)
[2016-12-30] MEDS ORDERED: MORPHINE SULFATE 8 MG/ML INJ IV PUSH ONE (03:15)
[2016-12-30 03:18] LABS: URINE COLOR STRAW (YELLW/STRAW)
[2016-12-30 03:19] LABS: BACTERIA, URINE MOD /hpf; COMMENT (UR) CULTURE INDICATED; CULTURE IF INDICATED CULTURE INDICATED; RBC, URINE 0-2 /hpf (0-3); SQUAMOUS EPITHELIAL CELL URINE > 8 /hpf (0-5)
[2016-12-30 03:20] LABS: CHLORIDE 106 MEQ/L (98-107); POTASSIUM 3.9 MEQ/L (3.5-5.1); SODIUM (NA) 140 MEQ/L (136-145)
[2016-12-30 03:24] LABS: ANION GAP 9 MEQ/L (5-15); BICARBONATE 24.9 MEQ/L (21.0-32.0); BLOOD UREA NITROGEN 11 MG/DL (7-18)
[2016-12-30 03:25] VITALS: O2SAT 100
[2016-12-30] MEDS ORDERED: DIATRIZOATE MEGLUM/DIATRIZOATE SOD 9 ML CUP ONE (03:26)
[2016-12-30 03:27] LABS: ALT (GPT) 20 U/L (10-53); AST (GOT) 16 U/L (15-37); GLOMERULAR FILTRATION RATE 82 ML/MIN (>89)
[2016-12-30 03:28] LABS: TOTAL BILIRUBIN ADULT 0.7 MG/DL (0.2-1.0)
[2016-12-30 03:30] LABS: ALKALINE PHOSPHATASE 102 U/L (45-117)
--- NOTE | 2016-12-30 04:05 | PD ---
HPI Chief Complaint: Abdominal Pain Time Seen by Provider: 02:58 Travel History International Travel<30 days: No Contact w/Intl Traveler<30days: No Traveled to known affect area: No History of Present Illness HPI 66-year-old female presents to the emergency department by private transportation for complaint of left lower quadrant abdominal pain. Patient reports pain is severe and worsened with ambulation and movement. Patient states she's noted some increased flatus and small amount of pink tinged mucous with attempted bowel movement. Patient has history of diverticulosis. Patient has had previous diverticulitis. Patient denies history of colitis. 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 No fever no chills nausea without vomiting. Patient was evaluated with blood work and a CT which identified no acute intra-abdominal or pelvic process other than a mildly prominent not inflamed appendix. Patient's lab work is normal except for moderate bacteria on urinalysis and patient was started presumptively on Cipro 500 mg twice daily for 5 day course. Patient reports she went home did not develop fever or chills headache continued to have nausea no vomiting poor appetite no bowel movement and developed increasing severe left lower quadrant abdominal pain with flatus. Patient states that she does not have any midline tenderness any longer and denies any right lower quadrant pain. Patient rates her pain as 8/10 in intensity. No vaginal discharge no vaginal bleeding positive urinary frequency no dysuria no urgency no hematuria no diarrhea has noted pink tinged mucus or stool and no vomiting. Patient denies any injury. Patient has taken 2 doses of Cipro. Patient states she was looking up her possible cause of pain on the Internet and became more concerned so decided to come to the emergency room for evaluation. FOR[facility], [facility] Past Medical History Narrative Medical Anxiety dyslipidemia hypertension chest pain with normal coronary vessels by cardiac catheterization 11/2016 diverticulosis ; no tobacco use no alcohol use no substance use Autoimmune Disease: No Anxiety: Yes Depression: No Heart Rhythm Problems: No Cancer: No Cardiac Catheterization: Yes Cardiovascular Problems: Yes High Cholesterol: Yes Chemotherapy: No Chest Pain: Yes Congestive Heart Failure: No Cerebrovascular Accident: No Diabetes: No Diminished Hearing: No Diverticulitis: Yes Endocrine: No GERD: Yes Genitourinary: No Hypertension: Yes Immune Disorder: No Musculoskeletal: No Neurologic: No Psychiatric: No Reproductive: No Respiratory: No Migraines: No Radiation Therapy: No Seizures: No Sickle Cell Disease: No Thyroid Disease: No Tetanus Vaccination: < 5 Years Menopausal: Yes : 3 Para: 2 : 1 Past Surgical History AICD: No Arteriovenous Shunt: No Section: Yes (x1) Coronary Artery Bypass Graft: No Gynecologic Surgery: Yes () Hysterectomy: No Insulin Pump: No Joint Replacement: No Pacemaker: No Other Surgery: Yes Social History Alcohol Use: No Tobacco Use: No Substance Use: No (hx of using "pot") Allergies-Medications (Allergen,Severity, Reaction): Coded Allergies: Penicillin (Verified Allergy, Severe, HIVES, 12/30/16) Aspirin (Verified Adverse Reaction, Severe, ABD PAIN, 12/30/16) Reported Meds & Prescriptions Reported Meds & Active Scripts Active Tylenol-Codeine #3 (Acetaminophen-Codeine) 300-30 mg Tab 1 Tab PO Q6H PRN Phenergan (Promethazine HCl) 25 Mg Tablet 25 Mg PO Q6H PRN Flagyl (Metronidazole) 500 Mg Tab 500 Mg PO QID 7 Days Ciprofloxacin (Ciprofloxacin HCl) 500 Mg Tab 500 Mg PO BID 5 Days Coreg (Carvedilol) 6.25 Mg Tab 6.25 Mg PO Q12HR Atorvastatin (Atorvastatin Calcium) 40 Mg Tab 40 Mg PO DAILY Adult Aspirin EC Low Strength (Aspirin) 81 Mg Tabec 162 Mg PO DAILY Review of Systems Except as stated in HPI: all other systems reviewed are Neg General / Constitutional: No: Fever, Chills HENT: No: Congestion Cardiovascular: No: Chest Pain or Discomfort Respiratory: No: Shortness of Breath Gastrointestinal: Positive: Nausea, Abdominal Pain, Hematochezia, No: Vomiting , Diarrhea, Hematemesis, Loss of Appetite Genitourinary: Positive: Dysuria, No: Hematuria, Flank Pain Musculoskeletal: No: Myalgias, Arthralgias Skin: No Rash Neurologic: No: Weakness Psychiatric: Positive: Anxiety Hematologic/Lymphatic: No: Lymph Node Enlargement Physical Exam Narrative GENERAL: Well-developed well-nourished female in no acute distress no respiratory distress appears mildly anxious SKIN: Warm and dry. HEAD: Normocephalic. EYES: No scleral icterus. No injection or drainage. NECK: Supple, trachea midline. No JVD or lymphadenopathy. CARDIOVASCULAR: Regular rate and rhythm without murmurs, gallops, or rubs. RESPIRATORY: Breath sounds equal bilaterally. No accessory muscle use. GASTROINTESTINAL: Abdomen soft, tenderness to palpation left lower quadrant otherwise abdomen is nontender to direct palpation, no guarding or rebound, nondistended. Rectal exam: Normal sphincter tone no fissure no hemorrhoid; normal sphincter tone empty rectal vault mucus on the exam glove is pink tinged. MUSCULOSKELETAL: No cyanosis, or edema. BACK: Nontender without obvious deformity. No CVA tenderness. Data Data Last Documented VS Vital Signs Date Time Temp Pulse Resp B/P Pulse Ox O2 Delivery O2 Flow Rate FiO2 12/30/16 05:16 67 29 97 12/30/16 04:38 147/76 12/30/16 04:19 Room Air 12/30/16 01:53 98.3 Orders Complete Blood Count With Diff (12/30/16 02:58) Comprehensive Metabolic Panel (12/30/16 02:58) Lipase (12/30/16 02:58) Lactic Acid (12/30/16 02:58) Urinalysis - C+S If Indicated (12/30/16 02:58) Iv Access Insert/Monitor (12/30/16 02:58) Ecg Monitoring (12/30/16 02:58) Oximetry (12/30/16 02:58) Ondansetron Inj (Zofran Inj) (12/30/16 03:00) Sodium Chlor 0.9% 1000 Ml Inj (Ns 1000 M (12/30/16 02:58) Sodium Chloride 0.9% Flush (Ns Flush) (12/30/16 03:00) Morphine Inj (Morphine Inj) (12/30/16 03:15) Oral Contrast - Adult (12/30/16 03:16) Urine Culture (12/30/16 02:30) Diatrizoate Liq ( Gastromike Liq) (12/30/16 03:26) Ketorolac Inj (Toradol Inj) (12/30/16 04:15) Metronidazole (Flagyl) (12/30/16 05:00) Labs Laboratory Tests Test 12/30/16 02:30 White Blood Count 11.8 TH/MM3 Red Blood Count 3.98 MIL/MM3 Hemoglobin 12.0 GM/DL Hematocrit 35.8 % Mean Corpuscular Volume 89.9 FL Mean Corpuscular Hemoglobin 30.1 PG Mean Corpuscular Hemoglobin 33.5 % Concent Red Cell Distribution Width 12.1 % Platelet Count 233 TH/MM3 Mean Platelet Volume 9.0 FL Neutrophils (%) (Auto) 73.1 % Lymphocytes (%) (Auto) 17.4 % Monocytes (%) (Auto) 8.2 % Eosinophils (%) (Auto) 1.1 % Basophils (%) (Auto) 0.2 % Neutrophils # (Auto) 8.6 TH/MM3 Lymphocytes # (Auto) 2.1 TH/MM3 Monocytes # (Auto) 1.0 TH/MM3 Eosinophils # (Auto) 0.1 TH/MM3 Basophils # (Auto) 0.0 TH/MM3 CBC Comment DIFF FINAL Differential Comment Urine Color STRAW Urine Turbidity CLOUDY Urine pH 5.5 Urine Specific [place] 1.005 Urine Protein NEG mg/dL Urine Glucose (UA) NEG mg/dL Urine Ketones NEG mg/dL Urine Occult Blood NEG Urine Nitrite NEG Urine Bilirubin NEG Urine Leukocyte Esterase TRACE Urine RBC 0-2 /hpf Urine WBC 3-5 /hpf Urine Squamous Epithelial > 8 /hpf Cells Urine Bacteria MOD /hpf Microscopic Urinalysis Comment CULTURE INDICATED Sodium Level 140 MEQ/L Potassium Level 3.9 MEQ/L Chloride Level 106 MEQ/L Carbon Dioxide Level 24.9 MEQ/L Anion Gap 9 MEQ/L Blood Urea Nitrogen 11 MG/DL Creatinine 0.84 MG/DL Estimat Glomerular Filtration 82 ML/MIN Rate Random Glucose 120 MG/DL Lactic Acid Level 1.0 mmol/L Calcium Level 8.9 MG/DL Total Bilirubin 0.7 MG/DL Aspartate Amino Transf 16 U/L (AST/SGOT) Alanine Aminotransferase 20 U/L (ALT/SGPT) Alkaline Phosphatase 102 U/L Total Protein 7.2 GM/DL Albumin 2.9 GM/DL Lipase 69 U/L MDM Medical Decision Making Medical Screen Exam Complete: Yes Emergency Medical Condition: Yes Medical Record Reviewed: Yes Interpretation(s) CBC & BMP Diagram 12/30/16 02:30 Vital Signs Date Time Temp Pulse Resp B/P Pulse Ox O2 Delivery O2 Flow Rate FiO2 12/30/16 03:25 100 Room Air 12/30/16 03:23 18 12/30/16 03:00 72 20 152/93 98 Room Air 12/30/16 01:53 98.3 75 18 151/75 100 Differential Diagnosis Abdominal pain, colitis, diverticulitis, adverse medication reaction, UTI; unlikely appendicitis, bowel obstruction; also to consider ischemic colitis Narrative Course IV access obtained specimens collected and sent for resulting; patient administered morphine sulfate and Zofran At 4 AM patient continues complaining of left lower quadrant abdominal pain and ambulates in an antalgic manner to bathroom holding her left lower quadrant CBC with automated differential with minimal leukocytosis 11,800 chemistries are grossly within normal range and urinalysis again shows moderate bacteria; lactic acid is not elevated at 1.0. Patient reassessed after labs resulted abdomen soft and very minimal tenderness to left side of abdomen with deep palpation no guarding or rebound; no antalgic movement supine to sitting to standing. Patient is that she is improved and after extensive discussion regarding her medications is aware she should not be taking her Cipro every 4 hours. Patient is encouraged to follow clear liquid diet increase fluid hydration as well as take her Cipro twice daily the addition of Flagyl 4 times daily she is to use a stool softener such as MiraLAX and she should follow a soft diet as she progresses from a clear liquid diet. Patient is aware of the need to monitor her temperature every 4 hours with thermometer and the need to return to the emergency department should she have increased pain fever or any concerns. Patient is to follow-up with her primary care provider. Patient is encouraged to discontinue nonsteroidal anti- inflammatory use. Gastric current imaging patient feels improved and would defer imaging at this time. [facility] Point of Care Internal Pos. & Neg. Controls: Passed Fecal Specimen Occult Blood: Positive Diagnosis Primary Impression: Abdominal pain Qualified Code: R10.32 - Left lower quadrant pain Additional Impression: Colitis Referrals: Primary Care Physician 1 day Patient Instructions: General Instructions, Narcotic given in the ED Additional Instructions: Follow clear liquid diet for next 12-24 hours advance as tolerated to bland/ Giovanni diet then advance to regular diet avoiding fried and fatty foods Complete course of Cipro/ciprofloxacin antibiotic (take this medicine twice daily once every 12 hours) and complete course of Flagyl/metronidazole antibiotic (take this medicine 4 times a day once every 6 hours) Take pain medication as prescribed as needed for pain greater than 5/10 in intensity Use MiraLAX as stool softener while taking oral antibiotic Monitor temperature every 4 hours with thermometer take Tylenol every 4 hours as needed for fever 100.4F or greater Return to the emergency department for any concerns or change in condition, such as development of fever, increased pain, vomiting, or bleeding Take Phenergan as prescribed as needed for nausea and/or vomiting Follow-up with your primary care provider call office this a.m. for follow-up appointment times one day Increase fluid hydration Med/Other Pt SpecificInfo: Prescription(s) given Scripts Acetaminophen-Codeine (Tylenol-Codeine #3)300-30 mg Tab1 Tab PO Q6H PRN (PAIN) # 4 TAB Ref 0 Prov:Bryanna Rosenberg MD 12/30/16 Promethazine (Phenergan)25 Mg [id number] Mg PO Q6H PRN (NAUSEA OR VOMITING) #10 TAB Ref 0 Prov:Bryanna Rosenberg MD 12/30/16 Metronidazole (Flagyl)500 Mg Qar994 Mg PO QID 7 Days Ref 0 Prov:Bryanna Rosenberg MD 12/30/16 Disposition: 01 DISCHARGE HOME Condition: Stable Bryanna Rosenberg MD Dec 30, 2016 04:05
[2016-12-30] MEDS ORDERED: KETOROLAC TROMETHAMINE 30 MG/ML (IVP) VIAL IV PUSH ONE (04:15)
[2016-12-30 04:19] VITALS: PULSE 89; RESP 20; O2SAT 97
[2016-12-30 04:38] VITALS: BP 147/76
[2016-12-30 04:52] VITALS: RESP 20
[2016-12-30] MEDS ORDERED: metroNIDAZOLE 500 MG TAB PO ONE (05:00)
[2016-12-30] MEDS ORDERED: TYLETAB34 PO (05:22)
[2016-12-30] MEDS ORDERED: PROM25TA10 PO (05:22)
[2016-12-30] MEDS ORDERED: METR-1 PO (05:22)
== END 2016-12-30 05:29 | disposition home or self-care (01) ==
LOC: PHED 01:47
DX: R10.32 Left lower quadrant pain (principal); K52.9 Noninfective gastroenteritis and colitis, unspecified
CPT/HCPCS: 80053; 81001; 83605; 83690; 85025; 87086; 96361; 96374; 96375; 99284; J1885; J2270; J2405; J7030; Q9963

== ENCOUNTER 2017-07-16 14:01 | Emergency (ER) | payer MEDICARE, OTHER ==
[2017-07-16] MEDS: ONDANSETRON ODT 4 MG TAB PO (15:35)
[2017-07-16] MEDS: oxyCODONE/ACETAMINOPHEN 5 MG/325 MG TAB PO (15:35)
[2017-07-16] MEDS: ACETAMINOPHEN 325 MG TAB PO (15:35)
== END 2017-07-16 16:39 | disposition home or self-care (01) ==
LOC: PHED 14:01
DX: B34.9 Viral infection, unspecified (principal); R19.7 Diarrhea, unspecified; R11.2 Nausea with vomiting, unspecified; E78.00 Pure hypercholesterolemia, unspecified; I10 Essential (primary) hypertension; K21.9 Gastro-esophageal reflux disease without esophagitis; Z88.0 Allergy status to penicillin
CPT/HCPCS: 87804; 87804-59; 99283

== ENCOUNTER 2018-04-07 15:01 | Observation (INO) ==
[2018-04-07] MEDS ORDERED: Ketorolac Inj 30 MG/ML (IVP) Vial IV.PUSH ONE (16:05)
--- NOTE | 2018-04-07 16:19 | ED ---
HPI General Chief complaint: Extremity Problem,Nontraumatic Stated complaint: Chest Discomfort x1Wk/Hip Pain x3Wks Time Seen by Provider: 04/07/18 16:04 Source: patient Mode of arrival: ambulatory Limitations: no limitations History of Present Illness HPI narrative: 67-year-old female patient with recent visit for left hip pain presents back to the ER today because she states that over the last past week she has had increase in the right hip pain which she currently rates at 9 out of 10. She states that it goes down her right leg, and starts on the buttocks area. She states that the left hip pain is also still there. She is scheduled to see orthopedics in another 2 weeks. She states that she is also noticed some chest discomfort with the pains on her hip. She pain is currently 5 out of 10 in the chest. She states it acts up when she eats sometimes and feels like a lump on her chest, and gets worse when she gets anxious and the pain is worse in her hip. She denies any nausea, shortness of breath, or other symptoms. She states that she has had her heart checked out about a year ago, catheterization which was negative. Related Data Home Medications Medication Instructions Recorded Confirmed amlodipine 5 mg PO DAILY 04/04/18 04/07/18 aspirin 162 mg PO DAILY 04/04/18 04/07/18 carvedilol 3.125 mg PO BID 04/04/18 04/07/18 rosuvastatin 20 mg PO DAILY 04/04/18 04/07/18 Previous Rx's Medication Instructions Recorded acetaminophen-codeine 1 tab PO Q4-6H PRN #10 tab 04/04/18 [Tylenol-Codeine #3] Allergies Allergy/AdvReac Type Severity Reaction Status Date / Time penicillin G Allergy Severe HIVES Verified 04/07/18 15:09 aspirin AdvReac Severe ABD PAIN Verified 04/07/18 15:09 Review of Systems ROS: all other systems reviewed are negative [facility] Medical History Medical History History of high blood pressure (Acute) Hx of coronary artery disease (Acute) Surgical History Surgical History Hx of cardiac cath (Acute) Hx of section (Acute) Social History Social History Substance History: No History of Abuse Second Hand Smoke Exposure: No Smoking Status: Never smoker How Often Do You Have a Drink Containing Alcohol: Never Recent Travel in [facility] within the Last 8 Weeks: No Recent Out of Country Travel within the Last 8 Weeks: No Immunization History Tetanus Immunization: Unsure Exam Narrative Exam Narrative: GENERAL: Well-developed elderly -[place] female patient currently and moderate distress. Awake and oriented x3. SKIN: Focused skin assessment warm/dry. HEAD: Atraumatic. Normocephalic. EYES: Pupils equal and round. No scleral icterus. No injection or drainage. ENT: No nasal bleeding or discharge. Mucous membranes pink and moist. NECK: Trachea midline. No JVD. CARDIOVASCULAR: Regular rate and rhythm. No murmur appreciated. RESPIRATORY: No accessory muscle use. Clear to auscultation. Breath sounds equal bilaterally. GASTROINTESTINAL: Abdomen soft, non-tender, nondistended. Hepatic and splenic margins not palpable. MUSCULOSKELETAL: No obvious deformities. No clubbing. No cyanosis. No edema. BACK: No CVA tenderness. No rash. No point tenderness on palpation of the spine. The tenderness appears to be mostly at the buttocks region worse on the right, no saddle anesthesia. NEUROLOGICAL: Awake and alert. No obvious cranial nerve deficits. Motor grossly within normal limits. Normal speech. PSYCHIATRIC: Anxious appearing mood and affect; insight and judgment normal. Course Initial Documented Vital Signs Temperature 99.5 F 04/07/18 15:10 Pulse Rate 69 04/07/18 15:10 Respiratory Rate 18 04/07/18 15:10 Blood Pressure 128/89 04/07/18 15:10 Pulse Oximetry 100 04/07/18 15:10 Last Documented Vital Signs Temperature 99.5 F 04/07/18 15:10 Pulse Rate 60 04/07/18 16:57 Respiratory Rate 16 04/07/18 16:57 Blood Pressure 133/65 04/07/18 16:57 Pulse Oximetry 100 04/07/18 16:57 Medical Decision Making MDM Narrative Medical decision making narrative: EKG shows T wave inversions in inferior leads. Chest x-ray and lab work was fairly unremarkable. Exam is most indicative of sciatica or hip strain in the right hip. She had x-rays done just 2 days ago which did not show any signs of acute processes and she denies any new injuries. She was given Toradol for the discomfort. At this point considering that she is complaining of the chest discomfort and questionable cardiac history, my plan would be to admit her for further evaluation and chest pain center for chest pains. Case is discussed with Dr. Yeh for admission. Medical Screen Exam Complete: Yes Emergency Medical Condition: Yes Differential Diagnosis Differential Diagnosis: Muscle spasms versus sciatica versus hip arthritis, chest pain evaluation Lab Data Lab results reviewed: Yes I reviewed the patient's lab results. Result diagrams: 04/07/18 16:40 04/07/18 17:19 Lab Results 04/07/18 04/07/18 Range/Units 16:40 17:19 CBC w Diff Auto diff final WBC 8.0 (4.0-11.0) th/mm3 RBC 4.24 (4.00-5.30) mil/mm3 Hgb 13.0 (11.6-15.3) gm/dL Hct 38.6 (35.0-46.0) % MCV 91.1 (80.0-100.0) fL MCH 30.7 (27.0-34.0) pg MCHC 33.7 (32.0-36.0) % RDW 12.3 (11.6-17.2) % Plt Count 253 (150-450) th/mm3 MPV 8.4 (7.0-11.0) fL Neut % (Auto) 63.0 (16.0-70.0) % Lymph % (Auto) 27.7 (9.0-44.0) % [place] % (Auto) 6.7 (0.0-8.0) % Eos % (Auto) 1.5 (0.0-4.0) % Baso % (Auto) 1.1 (0.0-2.0) % Neut # (Auto) 5.1 (1.8-7.7) th/mm3 Lymph # (Auto) 2.2 (1.0-4.8) th/mm3 [place] # (Auto) 0.5 (0.0-0.9) th/mm3 Eos # (Auto) 0.1 (0.0-0.4) th/mm3 Baso # (Auto) 0.1 (0.0-0.2) th/mm3 WBC Differential . Differential Comment . Sodium 141 (136-145) meq/L Potassium 4.1 (3.5-5.1) meq/L Chloride 105 (98-107) meq/L Carbon Dioxide 29.6 (21.0-32.0) meq/L Anion Gap 6 (5-15) meq/L BUN 13 (7-18) mg/dL Creatinine 0.77 (0.50-1.00) mg/dL Estimated GFR Greater than 89 (>89) mL/min Random Glucose 82 (74-106) mg/dL Calcium 8.6 (8.5-10.1) mg/dL Total Bilirubin 0.5 (0.2-1.0) mg/dL AST 21 (15-37) U/L ALT 21 (10-53) U/L Alkaline Phosphatase 84 (45-117) U/L Troponin I Less than 0.02 L (0.02-0.05) ng/mL Total Protein 7.2 (6.4-8.2) g/dL Albumin 3.1 L (3.4-5.0) g/dL Imaging Data Radiologist's impression: Chest X-Ray 04/07/18 16:04 CONCLUSION: Negative examination. ECG Data Attestation: I personally reviewed and interpreted this ECG as follows: Interpretation: EKG shows sinus bradycardia rate of 55 bpm with T wave inversions in [address] elevations were identified. Discharge Plan Discharge Disposition Patient Disposition: 30 Still Patient Discharge Condition Condition: Stable Discharge Details Anticipated Discharge Date: 04/07/18 Diagnosis: Sciatic leg pain, Chest pain Physicians Team ED Provider: Annette Schmidt Primary Care Provider: Do Suma Figueredo Rxs /Orders / Referrals /Forms Prescriptions: No Action amlodipine 5 mg Tablet 5 mg PO DAILY RF: 0 carvedilol 3.125 mg Tablet 3.125 mg PO BID RF: 0 aspirin 81 mg Tablet,Chewable 162 mg PO DAILY RF: 0 rosuvastatin 20 mg Tablet 20 mg PO DAILY RF: 0 acetaminophen-codeine [Tylenol-Codeine #3] 300-30 mg tablet 1 tab PO Q4-6H PRN (Reason: pain) Qty: 10 RF: 0 Status ED Status: With Doctor
--- NOTE | 2018-04-07 16:34 | XR ---
EXAM DATE: 04/07/2018 4:04 PM EDT AGE/SEX: 67 years / Female INDICATIONS: Shortness of breath starting today CLINICAL DATA: This is the patient's initial encounter. Patient reports that signs and symptoms have been present for 1 day and indicates a pain score of 0/10. MEDICAL/SURGICAL HISTORY: None. None. COMPARISON: [facility], CHEST SINGLE AP, 12/04/2016. . FINDINGS: A single AP view of the chest demonstrates the lungs to be symmetrically aerated without evidence of mass, infiltrate or effusion. The cardiomediastinal contours are unremarkable. Osseous structures a re intact. CONCLUSION: Negative examination. Electronically signed by: Oscar Egan MD 04/07/2018 4:33 PM EDT
[2018-04-07 16:51] LABS: Baso # (Auto) 0.1 th/mm3 (0.0-0.2); Baso % (Auto) 1.1 % (0.0-2.0); Eos # (Auto) 0.1 th/mm3 (0.0-0.4); Eos % (Auto) 1.5 % (0.0-4.0); Hematocrit 38.6 % (35.0-46.0); Lymph # (Auto) 2.2 th/mm3 (1.0-4.8); Lymph % (Auto) 27.7 % (9.0-44.0); Mean Corpuscular HGB Conc 33.7 % (32.0-36.0); Mean Corpuscular Hemoglobin 30.7 pg (27.0-34.0); Mean Corpuscular Volume 91.1 fL (80.0-100.0); Mean Platelet Volume 8.4 fL (7.0-11.0); Mono # (Auto) 0.5 th/mm3 (0.0-0.9); Mono % (Auto) 6.7 % (0.0-8.0); Neut # (Auto) 5.1 th/mm3 (1.8-7.7); Platelet Count 253 th/mm3 (150-450); Red Blood Count 4.24 mil/mm3 (4.00-5.30); Red Cell Distribution Width 12.3 % (11.6-17.2)
[2018-04-07 17:38] LABS: Chloride 105 meq/L (98-107); Potassium 4.1 meq/L (3.5-5.1); Sodium 141 meq/L (136-145)
[2018-04-07 17:42] LABS: Albumin 3.1 g/dL (3.4-5.0); Anion Gap 6 meq/L (5-15); Blood Urea Nitrogen 13 mg/dL (7-18); Calcium 8.6 mg/dL (8.5-10.1); Carbon Dioxide 29.6 meq/L (21.0-32.0); Glucose,Random 82 mg/dL (74-106)
[2018-04-07 17:45] LABS: Alanine Aminotransferase 21 U/L (10-53); Aspartate Aminotransferase 21 U/L (15-37)
[2018-04-07 17:46] LABS: Glomerular Filtration Rate Greater Than 89 mL/min (>89)
[2018-04-07 17:47] LABS: Total Protein 7.2 g/dL (6.4-8.2)
[2018-04-07 17:48] LABS: Alkaline Phosphatase 84 U/L (45-117)
[2018-04-07] MEDS ORDERED: Acetaminophen 500 MG Tablet PO PRN (19:09)
[2018-04-07] MEDS ORDERED: Temazepam 15 MG Capsule PO PRN (19:09)
[2018-04-07 22:23] LABS: Creatine Kinase 93 U/L (26-192)
--- NOTE | 2018-04-08 08:15 | P.HP ---
History of Present Illness Primary Care Physician: Do Suma Figueredo Chief Complaint: Hip pain leg pain chest pain History of Present Illness: 67-year-old female with known history of nonobstructive coronary artery disease , hypertension, hyperlipidemia, gastroesophageal reflux who presented to the hospital for evaluation of persistent back/hip pain with radicular symptoms and chest pain. Patient states that over the last 2 weeks she has been experiencing intermittent chest pain whenever she is under stress and arguing. She states the pain is located mid part of the chest without any radiation to the neck, back, shoulder, arm. States that it is a tightness sensation that usually resolves on its own in a couple of seconds. She denied any nausea, vomiting, diaphoresis, shortness of breath, dyspnea, lightheadedness, dizziness. Patient was evaluated in the hospital on multiple occasions in 2014 as well as 2016. In 2016 patient did undergo cardiac catheterization which was found to have nonobstructive coronary artery disease. The patient never did follow up with any food order delivery runner after discharge at that time. Patient denies any recent cardiac evaluations or stress testing. Patient states that she has been experiencing bilateral hip pain over the last few weeks as well. She did go to her prior medical doctor's office and has had an appointment scheduled with orthopedist on April 19, 2018. Patient states that the pain is progressively getting worse where she is having difficulty in walking. Patient states that she has been having radiating pain that comes around the buttocks and travels to the anterior medial aspect of her thighs. Patient states that happens on both sides. She denies any loss of bowel or bladder control. She has been having sniffing and difficulty in ambulating. Patient did come to the emergency department 3 days ago for the same symptoms. However she continues to have difficulty. Is recommended by the ER physician of the patient be observed in the hospital for further evaluation and management. - Diagnosis (1) Radiculopathy (2) Chest pain Review of Systems All other systems reviewed negative except as stated in HPI Cardiovascular: Reports chest pain Musculoskeletal: Reports joint pain, Reports radiating pain into limb PMFSH - History History Provided By: Patient - Medical History Medical History: Medical History (Last Updated 04/08/18 @ 08:16 by ROSALIE Castanon) Gastroesophageal reflux History of diverticulitis History of high blood pressure Hx of coronary artery disease - Surgical History Surgical History: Surgical History (Last Reviewed 04/08/18 @ 09:35 by Sherri Mares) Hx of cardiac cath Hx of section - Family History Family History: Family History (Last Updated 04/08/18 @ 08:13 by ROSALIE Castanon) Daughter History of diabetes mellitus Brother History of diabetes mellitus - Tobacco History Second Hand Smoke Exposure: No Tobacco Use In Past 30 Days: No Smoking Status: Never smoker - Alcohol History How Often Do You Have a Drink Containing Alcohol: 2 to 4 times a month - Substance Use History Substance History: No History of Abuse - Travel History Recent Travel in the [place] Within the Last 8 Weeks: No Recent Travel Out of the Country Within the Last 8 Weeks: No - Immunization History Tetanus Immunization: Unsure Medications and Allergies Active Medications: Active Medications Acetaminophen (Tylenol) 500 mg PO Q4H PRN PRN Reason: HEADACHE Hydrocodone Bitart/Acetaminophen ([place] 7.5/325) 1 tab PO Q4H PRN PRN Reason: PAIN SCALE 1 TO 7 Last Admin: 04/08/18 07:49 Dose: 1 tab Amlodipine Besylate (Norvasc) 5 mg PO DAILY [facility] Aspirin (Aspirin) 325 mg PO DAILY [facility] Atorvastatin Calcium (Lipitor) 40 mg PO DAILY [facility] Carvedilol (Coreg) 3.125 mg PO BID [facility] Last Admin: 04/07/18 22:34 Dose: 3.125 mg Nitroglycerin (Nitrostat Sl) 0.4 mg SL Q5M PRN PRN Reason: CHEST PAIN Ondansetron HCl (Zofran Inj) 4 mg IV.PUSH Q6H PRN PRN Reason: NAUSEA Sodium Chloride (Ns Flush) 2 ml IV.FLUSH BID [facility] Last Admin: 04/07/18 22:34 Dose: 2 ml Sodium Chloride (Ns Flush) 2 ml IV.FLUSH PRN PRN PRN Reason: FLUSH AFTER USING IV ACCESS Temazepam (Restoril) 15 mg PO HS PRN PRN Reason: INSOMNIA Allergies Allergy/AdvReac Type Severity Reaction Status Date / Time penicillin G Allergy Severe HIVES Verified 04/07/18 15:09 aspirin AdvReac Severe ABD PAIN Verified 04/07/18 15:09 Home Medications Medication Instructions Recorded Confirmed Type amlodipine 5 mg PO DAILY 04/04/18 04/07/18 History aspirin 162 mg PO DAILY 04/04/18 04/07/18 History carvedilol 3.125 mg PO BID 04/04/18 04/07/18 History rosuvastatin 20 mg PO DAILY 04/04/18 04/07/18 History Exam Vital signs: Vital Signs 04/07/18 15:10 04/07/18 16:44 04/07/18 16:57 Temperature 99.5 F Pulse Rate 69 60 Respiratory Rate 18 16 Blood Pressure 128/89 133/65 Pulse Oximetry 100 98 100 04/07/18 18:21 04/07/18 20:00 04/08/18 00:00 Temperature 98.4 F 97.4 F L Pulse Rate 62 55 L 56 L Respiratory Rate 20 20 Blood Pressure 140/68 127/58 L 111/56 L Pulse Oximetry 96 97 97 04/08/18 04:00 04/08/18 05:08 04/08/18 07:45 Temperature 96.8 F L Pulse Rate 57 L Respiratory Rate 20 Blood Pressure 148/79 H Pulse Oximetry 96 97 95 Intake & Output 04/07/18 04/08/18 04/08/18 18:59 06:59 18:59 Intake Total 0 / 0 Balance 0 / 0 Weight 111.8 kg 114.8 kg Intake: Oral 0 / 0 Other: # Voids 1 Date of Last Bowel Movement 04/07/18 Weight On Admission 114.9 kg Narrative: GENERAL: Well-developed, well-nourished, in no acute distress. alert and orientated HEENT: Head is normocephalic without any lesions or masses noted. Facial features are symmetric. Eyes: Pupils equal round reactive to light. Extraocular muscles are intact. Conjunctivae were clear. Oropharyngeal: Pharynx without any erythema edema. Tongue is midline without deviation. Buccal mucosa is moist without any masses or lesions NECK: Supple without any masses. Trachea midline no deviation. No JVD, no bruits are appreciated CARDIAC: Regular rhythm, regular rate. S1/S2 are heard. No murmurs gallops or rubs. LUNGS: Clear to auscultation bilaterally. No wheeze, rhonchi or rales. No use of accessory muscles on inspiration or expiration. ABDOMEN: Soft, nontender. Nondistended. Bowel sounds heard in all 4 quadrants. No organomegaly or masses. Negative rebound, negative guarding EXTREMITIES: No edema, pulses are equal bilaterally. No cyanosis or clubbing NEUROLOGY: Mood and affect appear appropriate. Cranial nerves II through XII grossly intact. Muscle strength 5/5 in upper and lower extremities bilaterally. Deep tendon reflexes are 2+ in upper and lower extremities bilaterally. LUMBAR SPINE: There is no palpable tenderness noted along this lumbar spine, no pain over direct palpation of the greater trochanter. Patient does appear to be antalgic when she ambulates and moving around in bed. Results - Labs CBC & Chem 7: 04/07/18 16:40 04/07/18 17:19 Labs: Laboratory Results - last 24 hr 04/07/18 04/07/18 04/07/18 16:40 17:19 20:30 CBC w Diff Auto diff final WBC 8.0 RBC 4.24 Hgb 13.0 Hct 38.6 MCV 91.1 MCH 30.7 MCHC 33.7 RDW 12.3 Plt Count 253 MPV 8.4 Neut % (Auto) 63.0 Lymph % (Auto) 27.7 [place] % (Auto) 6.7 Eos % (Auto) 1.5 Baso % (Auto) 1.1 Neut # (Auto) 5.1 Lymph # (Auto) 2.2 [place] # (Auto) 0.5 Eos # (Auto) 0.1 Baso # (Auto) 0.1 WBC Differential . Differential Comment . Sodium 141 Potassium 4.1 Chloride 105 Carbon Dioxide 29.6 Anion Gap 6 BUN 13 Creatinine 0.77 Estimated GFR Greater than 89 Random Glucose 82 Calcium 8.6 Total Bilirubin 0.5 AST 21 ALT 21 Alkaline Phosphatase 84 Total Creatine Kinase 93 Troponin I Less than 0.02 L Less than 0.02 L Total Protein 7.2 Albumin 3.1 L - Imaging Impressions Chest X-Ray 04/07/18 16:04 CONCLUSION: Negative examination. Caprini VTE Risk Assessment Caprini VTE Risk Assessment: No/Low Risk (score <= 1) Caprini Risk Assessment Model: Point Value = 1 Point Value = 2 Point Value = 3 Point Value = 5 Age 41-60 Minor surgery BMI > 25 kg/m2 Swollen legs Varicose veins or History of unexplained or recurrent spontaneous Oral contraceptives or hormone replacement Sepsis (< 1 month) Serious lung disease, including pneumonia (< 1 month) Abnormal pulmonary function Acute myocardial infarction Congestive heart failure (< 1 month) History of inflammatory bowel disease Medical patient at bed rest Age 61-74 Arthroscopic surgery Major open surgery (> 45 min) Laparoscopic surgery (> 45 min) Malignancy Confined to bed (> 72 hours) Immobilizing plaster cast Central venous access Age >= 75 History of VTE Family history of VTE Factor V Leiden Prothrombin [id number] Lupus anticoagulant Anticardiolipin antibodies Elevated serum homocysteine Heparin-induced thrombocytopenia Other congenital or acquired thrombophilia Stroke (< 1 month) Elective arthroplasty Hip, pelvis, or leg fracture Acute spinal cord injury (< 1 month) Prophylaxis Regimen: Total Risk Factor Score Risk Level Prophylaxis Regimen 0-1 Low Early ambulation 2 Moderate Order ONE of the following: *Sequential Compression Device (SCD) *Heparin 5000 units SQ BID 3-4 Higher Order ONE of the following medications: *Heparin 5000 units SQ TID *Enoxaparin/Lovenox 40 mg SQ daily (WT < 150 kg, CrCl > 30 mL/min) *Enoxaparin/Lovenox 30 mg SQ daily (WT < 150 kg, CrCl > 10-29 mL/min) *Enoxaparin/Lovenox 30 mg SQ BID (WT < 150 kg, CrCl > 30 mL/min) AND/OR *Sequential Compression Device (SCD) 5 or more Highest Order ONE of the following medications: *Heparin 5000 units SQ TID (Preferred with Epidurals) *Enoxaparin/Lovenox 40 mg SQ daily (WT < 150 kg, CrCl > 30 mL/min) *Enoxaparin/Lovenox 30 mg SQ daily (WT < 150 kg, CrCl > 10-29 mL/min) *Enoxaparin/Lovenox 30 mg SQ BID (WT < 150 kg, CrCl > 30 mL/min) AND *Sequential Compression Device (SCD) Assessment and Plan - Assessment (1) Radiculopathy Code(s): M54.10 - Radiculopathy, site unspecified Status: Acute (2) Chest pain Code(s): R07.9 - Chest pain, unspecified Status: Acute - Plan Chest pain -Patient does have increased risk factors to include age, body habitus, coronary artery disease -Patient has been ruled out for acute coronary event with serial cardiac enzymes that are: -Serial EKGs were performed which indicate sinus bradycardia without any changes -Myocardial perfusion study was performed and indicated no signs of ischemia, low risk -Continue aspirin, statin, beta-sophie Radiculopathy -Previous hip x-rays were reviewed and showed degenerative changes -MRI of the lumbar spine was performed and does show degenerative changes of the disc and facet joints resulting in multiple levels of varying neuroforaminal stenosis. There is severe central canal stenosis seen at level L3-L4 and lesser extent at L4-L5. -Physical therapy evaluation -I discussed the results of the MRI with the patient, notified her of the severe central canal stenosis. Patient denies any loss of bowel or bladder control, patient does not have any foot drop. No saddle paresthesia. Patient is asymptomatic other than difficulty with ambulation. Patient does have appointment with Dr. Owen in a couple of weeks. I notified her that we could have a neurosurgeon evaluate her during this hospitalization, however we would have to transfer her to the main hospital for the evaluation. Patient does not want to transfer to the other hospital for evaluation at this time. She states that she will get an appointment in the outpatient setting. I notified her to contact Dr. Owen and notify him of the MRI results and see if he would like to manage the condition or make recommendations for a neurosurgical evaluation. After long discussion about possible modalities of treatment and care, patient would like outpatient follow-up at this time. Hypertension, hyperlipidemia, coronary disease -Continue home medications DVT prevention -Sequential compression devices Discharge Planning: Discharge home in stable condition Activity: Ad shane. Diet: Healthy heart diet Medication per medication reconciliation Follow-up with primary medical doctor in 1 week, patient to contact Dr. Owen with results of her MRI for further recommendations and management.
[2018-04-08] MEDS ORDERED: Aspirin 325 MG Tablet PO SCH (09:00)
[2018-04-08] MEDS ORDERED: amLODIPine 5 MG Tablet PO SCH (09:00)
[2018-04-08 09:15] VITALS: BP 142/77; RESP 16; TEMP 96.1; O2SAT 97
[2018-04-08 10:05] VITALS: PULSE 56
[2018-04-08] MEDS ORDERED: Regadenoson Inj 0.4 MG/5 ML Syringe IV.PUSH ONE (10:50)
--- NOTE | 2018-04-08 12:00 | NM ---
EXAM DATE: 04/08/2018 10:28 AM EDT AGE/SEX: 67 years / Female INDICATIONS:Angina. Coronary artery disease Mid chest pain for one week. CLINICAL DATA: This is the patient's initial encounter. Patient reports that signs and symptoms have been present for 1 day and indicates a pain score of 8/10. MEDICAL/SURGICAL HISTORY: Hypertension. Gastroesophageal reflux disease. section. COMPARISON: [facility], MYOCARDIAL PERF PHARM SPECT, 12/04/2016. . No external comparison. DOSE: 11.0 mCi Tc 99m Myoview at rest 35.0 mCi [id number] at stress 0.4 mg Lexiscan STRESS SYMPTOMS: None noted. EJECTION FRACTION: 61 % TECHNIQUE: The patient underwent pharmacologic stress with infusion of prescribed dose. Continuous ECG tracing was monitored during stress. Gated SPECT imaging was performed after stress and conventi onal SPECT imaging was performed at rest. The examination was performed on a SPECT/CT scanner, both attenuation and non-corrected datasets were reviewed. FINDINGS: Distribution: The maximum perfused segment at stress is in the lateral wall. Perfusion Study: The pattern of perfusion at stress is within normal limits. Gated Study: There are intact wall motion and wall thickening without hypokinetic or dyskinetic segm ents. The ejection fraction is calculated at 61%. RISK CATEGORY: Low (<1% Annual Motality Rate) CONCLUSION: 1. No evidence of fixed or reversible perfusion defect. Normal cardiac motion is noted. Normal eject ion fraction. Electronically signed by: Helen Sandoval MD 04/08/2018 11:59 AM EDT
--- NOTE | 2018-04-08 12:49 | MR ---
EXAM DATE: 04/08/2018 9:43 AM EDT AGE/SEX: 67 years / Female INDICATIONS: Radiculopathy. Low back pain with pain to bilateral lower extremities and buttocks. CLINICAL DATA: This is the patient's initial encounter. Patient reports that signs and symptoms have been present for 2 days and indicates a pain score of 4/10. MEDICAL/SURGICAL HISTORY: Cardiovascular disease. section. COMPARISON: No prior exams available for comparison. TECHNIQUE: Multiplanar, multisequence MRI of the lumbar spine was performed without contrast. Patie nt was scanned in a sitting position; neutral, flexion, and extension scans were performed in the sa gittal plane. FINDINGS: Vertebra: Homogeneous signal. Normal alignment. Conus: Normal level and configuration. T12-L1: The thecal sac has a normal diameter. No evidence of disc bulge or protrusion. The neural foramina are patent bilaterally. Moderate facet degenerative change. L1-L2: Minimal disc bulge. Moderate facet degenerative change. L2-L3: Broad-based disc bulge and mild bilateral neuroforaminal narrowing. Moderate to severe facet degenerative change. Mild central canal stenosis. L3-L4: Disc desiccation and disc space narrowing with a broad-based disc bulge extending into the b ilateral neuroforamina. Moderate severe facet degenerative changes. Severe central canal stenosis and mild to moderate bilateral neuroforaminal stenosis. L4-L5: Broad-based disc bulge. Severe facet degenerative changes. Moderate to severe central canal stenosis and mild bilateral neuroforaminal stenosis. L5-S1: Broad-based disc bulge and severe facet degenerative changes. Mild bilateral neuroforaminal stenosis. CONCLUSION: 1. Degenerative changes of the disc and facet joints resulting in multiple levels of varying neurofo raminal stenosis. There is severe central canal stenosis seen at the level of L3/L4 and to lesser ext ent at L4/L5. Electronically signed by: Helen Sandoval MD 04/08/2018 12:47 PM EDT
--- NOTE | 2018-04-08 12:49 | ECG ---
Date Performed: 04/07/2018 Time Performed: 15:43:54 PTAGE: 67 years EKG: SINUS BRADYCARDIA POSSIBLE RIGHT VENTRICULAR CONDUCTION DELAY BORDERLINE ECG Since PREVIOUS TRACING , no significant change noted PREVIOUS TRACIN12/04/2016 15.01 DOCTOR: Anastacio Norman Interpretating Date/Time 04/08/2018 12:48:01
--- NOTE | 2018-04-08 12:50 | ECG ---
Date Performed: 04/07/2018 Time Performed: 19:44:34 PTAGE: 67 years EKG: SINUS BRADYCARDIA POSSIBLE RIGHT VENTRICULAR CONDUCTION DELAY NONSPECIFIC T-WAVE ABNORMALIT Y BORDERLINE ECG Since PREVIOUS TRACING , no significant change noted PREVIOUS TRACIN04/07/2018 15.43 DOCTOR: Anastacio Norman Interpretating Date/Time 04/08/2018 12:48:16
--- NOTE | 2018-04-08 13:57 | TR ---
Date Performed: 04/08/2018 Time Performed: 11:05:06 DOCTOR: Anastacio Norman DRUG LIST: CLINICAL HISTORY: CHEST PAIN ANGINA REASON FOR TEST: Angina REASON FOR ENDING: OBSERVATION: CONCLUSION: COMMENTS: Lexiscan stress test was performed under standard four minute protocol. Radionuclide was injected one minute prior to ending the test. No electrocardiographic abormalities were present t o suggest ischemia. Nuclear imaging and interpretation are pending.
== END 2018-04-08 15:01 | disposition home or self-care (01) ==
LOC: PHED 15:01 → PHEDA 15:01 → PH3 19:50
PROVIDERS: ADMIT Hospitalist; ATTEND Hospitalist
DX: Z79.82 Long term (current) use of aspirin; R07.89 Other chest pain; M54.30 Sciatica, unspecified side; Z83.3 Family history of diabetes mellitus; M48.061 Spinal stenosis, lumbar region without neurogenic claudication; K21.9 Gastro-esophageal reflux disease without esophagitis; E78.5 Hyperlipidemia, unspecified; I25.10 Atherosclerotic heart disease of native coronary artery without angina pectoris; M25.552 Pain in left hip; M54.10 Radiculopathy, site unspecified; I10 Essential (primary) hypertension